=== PATIENT | female | born 1955 | race Hispanic/Latino ===

== ENCOUNTER 2017-09-06 20:34 | Observation (INO) | payer SELFPAY ==
[~2017-09-06] VITALS: Ht 157.5 cm; Wt 79.2 kg
[~2017-09-06 20:34] MED LIST: CYAN100010 PO; FISH1CAP50 PO; HUMLIS7525 SQ; LISI10TA7 PO; OMEP20TA25 PO
[2017-09-06] MEDS ORDERED: ONDANSETRON HCL 4 MG/2 ML VIAL ONE (20:43)
[2017-09-06] MEDS ORDERED: SODIUM CHLORIDE 0.9% 1000ML 1,000 ML IV ONE (20:43)
[2017-09-06 21:00] LABS: BASOPHILS % (AUTO) 0.3 % (0.0-5.0); HEMATOCRIT 35.4 % (36-48); LYMPHOCYTES % (AUTO) 5.9 % (21.0-51.0); MEAN CORPUSCULAR HGB CONC 33.5 g/dL (32.0-36.0); MEAN CORPUSCULAR VOLUME 86.6 fL (79-99); MONOCYTES % (AUTO) 4.5 % (3.0-13.0); NEUTROPHILS % (AUTO) 88.3 % (40.0-77.0); PLATELET COUNT (AUTO) 279 K/uL (130-400); RED BLOOD CELL COUNT(AUTO) 4.09 MIL/uL (4.00-5.50); RED CELL DISTRIBUTION WIDTH 15.3 % (11.0-15.5); WHITE BLOOD COUNT (AUTO) 5.8 K/uL (4.8-10.8)
[2017-09-06 21:02] LABS: CREATININE 1.3 mg/dL (0.5-1.5); POTASSIUM 4.1 mmol/L (3.5-5.1)
[2017-09-06] MEDS ORDERED: IPRATROPIUM/ALBUTEROL SULFATE 3 ML SOLUTION IH ONE ×2 (21:04→21:54)
[2017-09-06] MEDS ORDERED: METHYLPREDNISOLONE SOD SUCC 125MG/2ML VIAL ONE (21:06)
[2017-09-06] MEDS ORDERED: MECLIZINE HCL 25 MG TABLET ONE (21:53)
[2017-09-07] MEDS ORDERED: MECLIZINE HCL 25 MG TABLET PO PRN
[2017-09-07] MEDS ORDERED: HYDRALAZINE HCL 20 MG/ML VIAL IV PRN
[2017-09-07] MEDS ORDERED: ONDANSETRON HCL 4 MG/2 ML VIAL IV PRN
[2017-09-07] MEDS: FUROSEMIDE 10 MG/ML 4ML VIAL IVP SCH
[2017-09-07] MEDS ORDERED: ACETAMINOPHEN 325 MG TAB PO PRN
[2017-09-07] MEDS ORDERED: FUROSEMIDE 10 MG/ML 4ML VIAL ONE (00:35)
[2017-09-07 01:15] VITALS: BP 162/77
[2017-09-07] MEDS ORDERED: PROP10DR5 OS (01:41)
[2017-09-07] MEDS ORDERED: ACET1TAB12 PO (01:41)
[2017-09-07] MEDS ORDERED: BENZ-51 PO (01:41)
[2017-09-07] MEDS ORDERED: INSU100I3 SQ (01:41)
[2017-09-07] MEDS ORDERED: AMOX500C2 PO (01:41)
[2017-09-07] MEDS ORDERED: METF500T6 PO (01:41)
[2017-09-07] MEDS ORDERED: ALBU6.7H IH (01:41)
[2017-09-07] MEDS ORDERED: LISI30TA4 PO (01:41)
[2017-09-07] MEDS ORDERED: ATOR10 PO (01:41)
[2017-09-07] MEDS: IPRATROPIUM/ALBUTEROL SULFATE 3 ML SOLUTION IH SCH ×6 (01:56→22:18)
[2017-09-07 03:31] VITALS: BP 156/80
[2017-09-07 06:28] LABS: CREATININE 1.6 mg/dL (0.5-1.5); HEMATOCRIT 28.9 % (36-48); MAGNESIUM 1.8 mg/dL (1.80-2.40); MEAN CORPUSCULAR HEMOGLOBIN 30.1 pg (27.0-33.0); MEAN CORPUSCULAR HGB CONC 34.6 g/dL (32.0-36.0); MEAN CORPUSCULAR VOLUME 87.2 fL (79-99); PLATELET COUNT (AUTO) 255 K/uL (130-400); POTASSIUM 4.1 mmol/L (3.5-5.1); RED BLOOD CELL COUNT(AUTO) 3.32 MIL/uL (4.00-5.50); RED CELL DISTRIBUTION WIDTH 15.1 % (11.0-15.5); WHITE BLOOD COUNT (AUTO) 5.1 K/uL (4.8-10.8)
[2017-09-07] MEDS ORDERED: GLUCAGON 1MG KIT 1 MG ML IM PRN (07:00)
[2017-09-07] MEDS ORDERED: DEXTROSE 50%-WATER 50 ML DISP.SYRIN IV PRN (07:00)
[2017-09-07 07:06] LABS: B-TYPE NATRIURETIC PEPTIDE 754 pg/mL (0-100)
[2017-09-07] MEDS: INSULIN LISPRO 100 UNIT/ML 3ML SQ SCH ×5 (07:14→22:09)
[2017-09-07 07:39] LABS: LYMPHOCYTES % (MANUAL) 2 % (22-44); MONOCYTES % (MANUAL) 1 % (2-9); SEGMENTED NEUTROPHILS % 97 % (40-70)
[2017-09-07 07:40] LABS: MAN.DIFF COMMENT-IMPRESSION MANUAL DIFFERENTIAL; PLATELET MORPHOLOGY COMMENT ADEQUATE
[2017-09-07 08:00] VITALS: BP 148/71
[2017-09-07] MEDS: METHYLPREDNISOLONE SOD SUCC 125MG/2ML VIAL IV SCH ×2 (09:48→22:07)
[2017-09-07] MEDS: BENZONATATE 100 MG CAPSULE PO SCH ×3 (09:54→22:06)
[2017-09-07] MEDS: PANTOPRAZOLE SODIUM 40 MG TABLET.DR PO SCH (09:54)
[2017-09-07] MEDS: ENOXAPARIN SODIUM 40 MG/0.4 ML SYRINGE SQ SCH (09:59)
[2017-09-07 11:47] VITALS: BP 128/58
[2017-09-07 16:00] VITALS: BP 147/59
[2017-09-07] MEDS ORDERED: INSULIN HUMULIN R 100 UNIT/ML 3ML SQ SCH (16:30)
[2017-09-07 20:00] VITALS: BP 144/75
[2017-09-08] VITALS: BP 136/74
[2017-09-08] MEDS: FUROSEMIDE 10 MG/ML 4ML VIAL IVP SCH
[2017-09-08] MEDS: IPRATROPIUM/ALBUTEROL SULFATE 3 ML SOLUTION IH SCH ×4 (02:14→13:38)
[2017-09-08 04:00] VITALS: BP 153/79
[2017-09-08] MEDS: INSULIN LISPRO 100 UNIT/ML 3ML SQ SCH ×2 (06:46→11:55)
[2017-09-08 07:00] VITALS: BP 157/78
[2017-09-08] MEDS: BENZONATATE 100 MG CAPSULE PO SCH ×2 (09:59→14:33)
[2017-09-08] MEDS: PANTOPRAZOLE SODIUM 40 MG TABLET.DR PO SCH (09:59)
[2017-09-08] MEDS: ENOXAPARIN SODIUM 40 MG/0.4 ML SYRINGE SQ SCH (10:01)
[2017-09-08] MEDS: METHYLPREDNISOLONE SOD SUCC 125MG/2ML VIAL IV SCH (10:01)
[2017-09-08 11:00] VITALS: BP 147/74
== END 2017-09-08 16:45 | disposition home or self-care (01) ==
LOC: EDH 20:34 → EDHIP 20:35 → 3CH 09-07 00:56
PROVIDERS: ADMIT Family Medicine; ATTEND Family Medicine
DX: J20.9 Acute bronchitis, unspecified (principal); J45.901 Unspecified asthma with (acute) exacerbation; R42 Dizziness and giddiness; E11.22 Type 2 diabetes mellitus with diabetic chronic kidney disease; E66.9 Obesity, unspecified; E78.5 Hyperlipidemia, unspecified; I12.9 Hypertensive chronic kidney disease with stage 1 through stage 4 chronic kidney disease, or unspecified chronic kidney disease; N18.3 Chronic kidney disease, stage 3 (moderate)
CPT/HCPCS: 36415 ×2; 80048 ×2; 82948 ×6; 83735; 83880 ×2; 84484; 85025 ×2; 87633; 93005; 94640 ×12; 94664; 96372 ×2; 96374; 96376 ×2; 99285; G0378 ×44; J1650 ×2; J1940; J2405; J2930 ×4; J7030

== ENCOUNTER 2017-10-08 18:52 | Emergency (ER) | payer SELFPAY ==
[~2017-10-08 18:52] MED LIST changes: +ACET1TAB12 PO; +ALBU6.7H IH; +ATOR10 PO; +BENZ-51 PO; -HUMLIS7525 SQ; +INSU100I3 SQ; -LISI10TA7 PO; +LISI30TA4 PO; +METF500T6 PO; +PROP10DR5 OS
[2017-10-08 20:42] LABS: BASOPHILS % (AUTO) 1.1 % (0.0-5.0); EOSINOPHILS % (AUTO) 7.4 % (0.0-8.0); HEMATOCRIT 29.3 % (36-48); LYMPHOCYTES % (AUTO) 21.5 % (21.0-51.0); MEAN CORPUSCULAR HEMOGLOBIN 29.4 pg (27.0-33.0); MEAN CORPUSCULAR VOLUME 86.4 fL (79-99); MONOCYTES % (AUTO) 8.4 % (3.0-13.0); NEUTROPHILS % (AUTO) 61.6 % (40.0-77.0); NUCLEATED RED BLOOD CELLS 0.2 % (0.0-0.19); PLATELET COUNT (AUTO) 214 K/uL (130-400); RED BLOOD CELL COUNT(AUTO) 3.39 MIL/uL (4.00-5.50); RED CELL DISTRIBUTION WIDTH 14.4 % (11.0-15.5); WHITE BLOOD COUNT (AUTO) 3.3 K/uL (4.8-10.8)
[2017-10-08 20:54] LABS: CREATININE 1.8 mg/dL (0.5-1.5); POTASSIUM 3.5 mmol/L (3.5-5.1)
[2017-10-08 21:05] LABS: ALBUMIN 1.6 g/dL (3.5-5.0); BILIRUBIN,TOTAL 0.2 mg/dL (0.2-1.0); CREATINE KINASE MB 3.1 ng/mL (0.5-3.6); TOTAL PROTEIN, SERUM 5.9 g/dL (6.0-8.3)
[2017-10-08] MEDS ORDERED: INSULIN HUMULIN R 100 UNIT/ML 3ML ONE ×2 (21:37→21:38)
[2017-10-08] MEDS ORDERED: IPRATROPIUM/ALBUTEROL SULFATE 3 ML SOLUTION IH ONE (22:14)
== END 2017-10-09 00:12 | disposition home or self-care (01) ==
LOC: EDH 18:52
DX: J45.909 Unspecified asthma, uncomplicated (principal); E11.65 Type 2 diabetes mellitus with hyperglycemia; I10 Essential (primary) hypertension; Z79.4 Long term (current) use of insulin
CPT/HCPCS: 36415; 71045; 80053; 82550; 82553; 82948; 84484; 85025; 93005; 94640; 96374; 99285; J1815 ×2

== ENCOUNTER 2017-12-13 08:46 | Emergency (ER) | payer SELFPAY ==
[2017-12-13] MEDS ORDERED: ACETAMINOPHEN 325 MG TAB ONE (09:26)
[2017-12-13] MEDS ORDERED: ONDANSETRON HCL MDV 20ML 2 MG/ML VIAL ONE (09:26)
[2017-12-13] MEDS ORDERED: SODIUM CHLORIDE 0.9% 1000ML 1,000 ML IV ONE (09:26)
[2017-12-13 09:29] LABS: APPEARANCE,URINE Clear (CLEAR); BILIRUBIN,URINE Negative (NEGATIVE); COLOR,URINE Yellow (YELLOW); GLUCOSE, URINE (UA) 500 mg/dL (NEGATIVE); KETONES,URINE Negative (NEGATIVE); LEUKOCYTE ESTERASE ,URINE Negative (NEGATIVE); NITRATE,URINE Negative (NEGATIVE); OCCULT BLOOD,URINE Small (NEGATIVE); PH,URINE 6.5 (5.0-8.0); PROTEIN,URINE >=1000 (NEGATIVE); UROBILINOGEN,URINE 0.2 mg/dL (0.2-1.0)
[2017-12-13 09:34] LABS: BACTERIA,URINE Rare /HPF (None Seen); RBC,URINE 0-1 /HPF (0-1); SQUAMOUS EPITHELIAL CELL,UR Rare /LPF (0-2); WBC,URINE 0-1 /HPF (0-1)
[2017-12-13 09:49] LABS: BASOPHILS % (AUTO) 0.6 % (0.0-5.0); EOSINOPHILS % (AUTO) 3.4 % (0.0-8.0); HEMATOCRIT 30.9 % (36-48); LYMPHOCYTES % (AUTO) 16.7 % (21.0-51.0); MEAN CORPUSCULAR HEMOGLOBIN 29.7 pg (27.0-33.0); MEAN CORPUSCULAR VOLUME 87.2 fL (79-99); MONOCYTES % (AUTO) 5.8 % (3.0-13.0); NEUTROPHILS % (AUTO) 73.5 % (40.0-77.0); PLATELET COUNT (AUTO) 216 K/uL (130-400); RED BLOOD CELL COUNT(AUTO) 3.54 MIL/uL (4.00-5.50); RED CELL DISTRIBUTION WIDTH 14.7 % (11.0-15.5); WHITE BLOOD COUNT (AUTO) 4.3 K/uL (4.8-10.8)
[2017-12-13 10:00] LABS: CREATININE 1.8 mg/dL (0.5-1.5); POTASSIUM 4.1 mmol/L (3.5-5.1)
[2017-12-13 10:06] LABS: ALBUMIN 1.9 g/dL (3.5-5.0); BILIRUBIN,TOTAL 0.2 mg/dL (0.2-1.0)
== END 2017-12-13 11:49 | disposition home or self-care (01) ==
LOC: EDH 08:46
DX: R11.2 Nausea with vomiting, unspecified (principal); G89.29 Other chronic pain; M54.2 Cervicalgia; E11.9 Type 2 diabetes mellitus without complications; E78.5 Hyperlipidemia, unspecified; I10 Essential (primary) hypertension; J45.909 Unspecified asthma, uncomplicated; Z79.4 Long term (current) use of insulin; Z90.710 Acquired absence of both cervix and uterus
CPT/HCPCS: 36415; 80053; 81001; 83690; 84484; 85025; 93005; 96361; 96374; 99285; J7030

== ENCOUNTER 2018-02-20 09:49 | Inpatient (IN) | payer OTHER ==
[~2018-02-20] VITALS: Ht 152.4 cm; Wt 78.2 kg
[2018-02-20] MEDS ORDERED: IPRATROPIUM/ALBUTEROL SULFATE 3 ML SOLUTION IH ONE (10:09)
[2018-02-20] MEDS ORDERED: METHYLPREDNISOLONE SOD SUCC 40MG/ML 1ML ONE (10:24)
[2018-02-20] MEDS ORDERED: ACETAMINOPHEN 325 MG TAB ONE (10:24)
[2018-02-20 10:25] LABS: BASOPHILS % (AUTO) 0.5 % (0.0-5.0); EOSINOPHILS % (AUTO) 4.4 % (0.0-8.0); HEMATOCRIT 28.5 % (36-48); LYMPHOCYTES % (AUTO) 29.3 % (21.0-51.0); MEAN CORPUSCULAR HEMOGLOBIN 30.1 pg (27.0-33.0); MEAN CORPUSCULAR HGB CONC 34.6 g/dL (32.0-36.0); MEAN CORPUSCULAR VOLUME 86.8 fL (79-99); MONOCYTES % (AUTO) 7.8 % (3.0-13.0); NUCLEATED RED BLOOD CELLS 0.1 % (0.0-0.19); PLATELET COUNT (AUTO) 198 K/uL (130-400); RED BLOOD CELL COUNT(AUTO) 3.28 MIL/uL (4.00-5.50); RED CELL DISTRIBUTION WIDTH 14.6 % (11.0-15.5); WHITE BLOOD COUNT (AUTO) 4.4 K/uL (4.8-10.8)
[2018-02-20] MEDS ORDERED: NITROGLYCERIN 1GM/1 INCH PACKET TD ONE (10:25)
[2018-02-20 10:31] LABS: CREATININE 2.6 mg/dL (0.5-1.5); POTASSIUM 4.6 mmol/L (3.5-5.1)
[2018-02-20 10:43] LABS: ALBUMIN 2.1 g/dL (3.5-5.0); BILIRUBIN,TOTAL 0.2 mg/dL (0.2-1.0); TOTAL PROTEIN, SERUM 6.4 g/dL (6.0-8.3)
[2018-02-20 10:44] LABS: B-TYPE NATRIURETIC PEPTIDE 796 pg/mL (0-100)
[2018-02-20 10:56] LABS: APPEARANCE,URINE Clear (CLEAR); BILIRUBIN,URINE Negative (NEGATIVE); COLOR,URINE Yellow (YELLOW); GLUCOSE, URINE (UA) 500 mg/dL (NEGATIVE); KETONES,URINE Negative (NEGATIVE); LEUKOCYTE ESTERASE ,URINE Negative (NEGATIVE); NITRATE,URINE Negative (NEGATIVE); OCCULT BLOOD,URINE Small (NEGATIVE); PH,URINE 6.5 (5.0-8.0); PROTEIN,URINE >=1000 (NEGATIVE); UROBILINOGEN,URINE 0.2 mg/dL (0.2-1.0)
[2018-02-20 11:20] LABS: BACTERIA,URINE Few /HPF (None Seen); RBC,URINE 0-1 /HPF (0-1)
[2018-02-20] MEDS ORDERED: FUROSEMIDE 10 MG/ML 4ML VIAL ONE (12:55)
[2018-02-20 16:35] VITALS: BP 156/96
[2018-02-20] MEDS ORDERED: ASPI-555 PO (17:17)
[2018-02-20] MEDS ORDERED: PNEUMOCOCCAL VACCINE POLYVALENT 0.5 ML/VIAL [PPV] IM ONE (18:30)
[2018-02-20 19:15] VITALS: BP 178/83
[2018-02-20] MEDS ORDERED: FUROSEMIDE 10 MG/ML 4ML VIAL IVP ONE (20:30)
[2018-02-20 23:42] VITALS: BP 179/67
[2018-02-21] MEDS ORDERED: IPRATROPIUM/ALBUTEROL SULFATE 3 ML SOLUTION IH ONE (00:58)
[2018-02-21] MEDS: IPRATROPIUM/ALBUTEROL SULFATE 3 ML SOLUTION IH SCH ×6 (02:00→21:44)
[2018-02-21 04:28] LABS: HEMATOCRIT 26.4 % (36-48); MEAN CORPUSCULAR HEMOGLOBIN 29.9 pg (27.0-33.0); MEAN CORPUSCULAR HGB CONC 34.2 g/dL (32.0-36.0); MEAN CORPUSCULAR VOLUME 87.4 fL (79-99); PLATELET COUNT (AUTO) 194 K/uL (130-400); RED BLOOD CELL COUNT(AUTO) 3.02 MIL/uL (4.00-5.50); RED CELL DISTRIBUTION WIDTH 14.5 % (11.0-15.5); WHITE BLOOD COUNT (AUTO) 5.1 K/uL (4.8-10.8)
[2018-02-21 04:31] VITALS: BP 155/77
[2018-02-21 04:39] LABS: B-TYPE NATRIURETIC PEPTIDE 1070 pg/mL (0-100)
[2018-02-21 04:42] LABS: MAGNESIUM 1.8 mg/dL (1.80-2.40); PHOSPHORUS 6.1 mg/dL (2.5-4.9); URIC ACID 6.4 mg/dL (2.6-7.2)
[2018-02-21 05:03] LABS: % IRON SATURATION 24.5 % (22-44)
[2018-02-21] MEDS: FUROSEMIDE 10 MG/ML 4ML VIAL IVP SCH ×2 (05:54→16:09)
[2018-02-21 08:00] VITALS: BP 152/72
[2018-02-21] MEDS: INSULIN HUMULIN R 100 UNIT/ML 3ML SQ SCH ×4 (08:02→20:50)
[2018-02-21] MEDS ORDERED: FERR324T4 PO (08:22)
[2018-02-21] MEDS ORDERED: PHEN95TA23 PO (08:22)
[2018-02-21] MEDS ORDERED: LISI40TA4 PO (08:22)
[2018-02-21] MEDS ORDERED: FURO20TA4 PO ×2 (08:22)
[2018-02-21] MEDS ORDERED: HYDR-3421 PO (08:22)
[2018-02-21] MEDS ORDERED: BECL8.7A7 IH (08:22)
[2018-02-21] MEDS ORDERED: INSU100V12 SQ (08:23)
[2018-02-21] MEDS: FOLIC ACID/VITAMIN B COMP W-C 1 MG CAPSULE PO SCH (09:04)
[2018-02-21 12:00] VITALS: BP 134/51
[2018-02-21 16:00] VITALS: BP 151/70
[2018-02-21] MEDS: CALCIUM ACETATE 667 MG CAPSULE PO SCH (16:09)
[2018-02-21 18:14] LABS: CREATINE KINASE MB 4.4 ng/mL (0.5-3.6); CREATINE KINASE, TOTAL 189 U/L (21-232); MYOGLOBIN 364 ng/mL (10-92); TROPONIN I < 0.04 ng/mL (0.00-0.06)
[2018-02-21 18:44] LABS: COLLECTION PERIOD,URINE 24 HR; TOTAL VOLUME 24HRS,URINE 1900 mL
[2018-02-21 19:54] VITALS: BP 115/54
[2018-02-21 19:59] LABS: TPROTEIN TIMED,URINE 228 mg/dL; TPROTEIN U,24HR CALC 4332 mg/24HR (0-165)
[2018-02-21] MEDS: ATORVASTATIN CALCIUM 20 MG TABLET PO SCH (20:27)
[2018-02-21] MEDS: METOPROLOL TARTRATE 25 MG TAB PO SCH (20:27)
[2018-02-21 23:22] VITALS: BP 161/77
[2018-02-22] MEDS: IPRATROPIUM/ALBUTEROL SULFATE 3 ML SOLUTION IH SCH ×2 (01:39→05:56)
[2018-02-22 04:02] VITALS: BP 146/66
[2018-02-22 04:22] LABS: BASOPHILS % (AUTO) 0.4 % (0.0-5.0); EOSINOPHILS % (AUTO) 1.6 % (0.0-8.0); HEMATOCRIT 24.4 % (36-48); LYMPHOCYTES % (AUTO) 28.2 % (21.0-51.0); MEAN CORPUSCULAR HEMOGLOBIN 30.8 pg (27.0-33.0); MEAN CORPUSCULAR HGB CONC 35.4 g/dL (32.0-36.0); MONOCYTES % (AUTO) 6.4 % (3.0-13.0); NEUTROPHILS % (AUTO) 63.4 % (40.0-77.0); PLATELET COUNT (AUTO) 202 K/uL (130-400); RED CELL DISTRIBUTION WIDTH 14.9 % (11.0-15.5); WHITE BLOOD COUNT (AUTO) 4.9 K/uL (4.8-10.8)
[2018-02-22 04:34] LABS: CREATININE 2.9 mg/dL (0.5-1.5); POTASSIUM 3.7 mmol/L (3.5-5.1)
[2018-02-22] MEDS: INSULIN HUMULIN R 100 UNIT/ML 3ML SQ SCH ×4 (05:52→20:48)
[2018-02-22] MEDS: FUROSEMIDE 10 MG/ML 4ML VIAL IVP SCH ×2 (06:13→17:10)
[2018-02-22 07:30] VITALS: BP 176/80
[2018-02-22] MEDS: FOLIC ACID/VITAMIN B COMP W-C 1 MG CAPSULE PO SCH (09:06)
[2018-02-22] MEDS: ASPIRIN 81MG TAB.CHEW PO SCH (09:06)
[2018-02-22] MEDS: CALCIUM ACETATE 667 MG CAPSULE PO SCH ×3 (09:06→17:10)
[2018-02-22] MEDS: METOPROLOL TARTRATE 25 MG TAB PO SCH ×2 (09:06→20:20)
[2018-02-22 11:00] VITALS: BP 155/72
[2018-02-22] MEDS: AMLODIPINE BESYLATE 5 MG TAB PO SCH (11:35)
[2018-02-22] MEDS: HYDRALAZINE HCL 25 MG TABLET PO SCH ×3 (11:35→20:24)
[2018-02-22 16:00] VITALS: BP 168/76
[2018-02-22 19:00] VITALS: BP 145/78
[2018-02-22] MEDS: ATORVASTATIN CALCIUM 20 MG TABLET PO SCH (20:20)
[2018-02-23] VITALS: BP 128/55
[2018-02-23 04:00] VITALS: BP 138/61
[2018-02-23 04:45] LABS: BASOPHILS % (AUTO) 0.5 % (0.0-5.0); HEMATOCRIT 28.3 % (36-48); LYMPHOCYTES % (AUTO) 32.1 % (21.0-51.0); MEAN CORPUSCULAR HEMOGLOBIN 29.8 pg (27.0-33.0); MEAN CORPUSCULAR HGB CONC 34.4 g/dL (32.0-36.0); MEAN CORPUSCULAR VOLUME 86.6 fL (79-99); MONOCYTES % (AUTO) 7.4 % (3.0-13.0); PLATELET COUNT (AUTO) 244 K/uL (130-400); RED BLOOD CELL COUNT(AUTO) 3.26 MIL/uL (4.00-5.50); RED CELL DISTRIBUTION WIDTH 14.6 % (11.0-15.5); WHITE BLOOD COUNT (AUTO) 4.7 K/uL (4.8-10.8)
[2018-02-23 04:56] LABS: CREATININE 2.8 mg/dL (0.5-1.5)
[2018-02-23] MEDS: FUROSEMIDE 10 MG/ML 4ML VIAL IVP SCH ×2 (05:44→17:15)
[2018-02-23] MEDS: INSULIN HUMULIN R 100 UNIT/ML 3ML SQ SCH ×4 (06:21→21:28)
[2018-02-23 08:07] VITALS: BP 161/77
[2018-02-23] MEDS: CALCIUM ACETATE 667 MG CAPSULE PO SCH ×3 (08:57→17:15)
[2018-02-23] MEDS: ASPIRIN 81MG TAB.CHEW PO SCH (08:57)
[2018-02-23] MEDS: AMLODIPINE BESYLATE 5 MG TAB PO SCH (08:57)
[2018-02-23] MEDS: HYDRALAZINE HCL 25 MG TABLET PO SCH ×3 (08:57→20:10)
[2018-02-23] MEDS: FOLIC ACID/VITAMIN B COMP W-C 1 MG CAPSULE PO SCH (08:57)
[2018-02-23] MEDS: METOPROLOL TARTRATE 25 MG TAB PO SCH ×2 (08:58→20:09)
[2018-02-23 12:03] VITALS: BP 132/63
[2018-02-23 16:35] VITALS: BP 127/61
[2018-02-23 19:00] VITALS: BP 161/77
[2018-02-23] MEDS: ATORVASTATIN CALCIUM 20 MG TABLET PO SCH (20:09)
[2018-02-24] VITALS: BP 136/71
[2018-02-24] MEDS ORDERED: DEXTROSE 50%-WATER 50 ML DISP.SYRIN IV ONE (01:08)
[2018-02-24 04:00] VITALS: BP 146/51
[2018-02-24] MEDS: FUROSEMIDE 10 MG/ML 4ML VIAL IVP SCH (05:52)
[2018-02-24] MEDS: INSULIN HUMULIN R 100 UNIT/ML 3ML SQ SCH ×2 (06:09→12:04)
[2018-02-24 07:42] VITALS: BP 149/72
[2018-02-24] MEDS: METOPROLOL TARTRATE 25 MG TAB PO SCH (07:52)
[2018-02-24] MEDS: AMLODIPINE BESYLATE 5 MG TAB PO SCH (07:52)
[2018-02-24] MEDS: CALCIUM ACETATE 667 MG CAPSULE PO SCH ×3 (07:52→16:57)
[2018-02-24] MEDS: ASPIRIN 81MG TAB.CHEW PO SCH (07:52)
[2018-02-24] MEDS: FOLIC ACID/VITAMIN B COMP W-C 1 MG CAPSULE PO SCH (07:52)
[2018-02-24] MEDS: HYDRALAZINE HCL 25 MG TABLET PO SCH ×2 (09:00→14:54)
[2018-02-24] MEDS ORDERED: HYDR25 PO (10:44)
[2018-02-24] MEDS ORDERED: Folic Acid/Vitamin B Comp W-C PO (10:44)
[2018-02-24] MEDS ORDERED: METO25 PO (10:44)
[2018-02-24] MEDS ORDERED: ASPI-1005 PO (10:44)
[2018-02-24] MEDS ORDERED: AMLO5TAB4 PO (10:44)
[2018-02-24] MEDS ORDERED: Calcium Acetate PO (10:44)
[2018-02-24 11:47] VITALS: BP 156/56
== END 2018-02-24 17:28 | disposition home or self-care (01) | DRG 291 ==
LOC: EDH 09:49 → EDHIP 09:50 → 3AH 15:47
PROVIDERS: ADMIT Internal Medicine Nephrology; ATTEND Internal Medicine Nephrology
DX: I13.0 Hypertensive heart and chronic kidney disease with heart failure and stage 1 through stage 4 chronic kidney disease, or unspecified chronic kidney disease (principal); I50.33 Acute on chronic diastolic (congestive) heart failure; E11.21 Type 2 diabetes mellitus with diabetic nephropathy; E11.51 Type 2 diabetes mellitus with diabetic peripheral angiopathy without gangrene; N04.9 Nephrotic syndrome with unspecified morphologic changes; N18.4 Chronic kidney disease, stage 4 (severe); W18.39XA Other fall on same level, initial encounter; D63.1 Anemia in chronic kidney disease; E11.22 Type 2 diabetes mellitus with diabetic chronic kidney disease; E11.65 Type 2 diabetes mellitus with hyperglycemia; E66.01 Morbid (severe) obesity due to excess calories; E78.5 Hyperlipidemia, unspecified; K21.9 Gastro-esophageal reflux disease without esophagitis; J44.9 Chronic obstructive pulmonary disease, unspecified; Z68.33 Body mass index [BMI] 33.0-33.9, adult; Z88.8 Allergy status to other drugs, medicaments and biological substances; Z90.710 Acquired absence of both cervix and uterus; Z79.4 Long term (current) use of insulin; Z79.899 Other long term (current) drug therapy; Y93.89 Activity, other specified; Y92.89 Other specified places as the place of occurrence of the external cause; Y99.8 Other external cause status; Z82.49 Family history of ischemic heart disease and other diseases of the circulatory system; Z83.3 Family history of diabetes mellitus
CPT/HCPCS: 36415; 71046; 73030; 76770; 80048; 80053; 81001; 82550; 82553; 82575; 82728; 82948; 83540; 83550; 83735; 83874; 83880; 84100; 84156; 84484; 84550; 85025; 85027; 93005; 93306; 94640; 94664; J1815; J1940; J2920; J7070

== ENCOUNTER 2018-10-03 09:00 | Emergency (ER) | payer OTHER ==
[~2018-10-03 09:00] MED LIST changes: -ACET1TAB12 PO; -ALBU6.7H IH; +AMLO5TAB4 PO; +ASPI-1005 PO; -ATOR10 PO; +BECL8.7A7 IH; -BENZ-51 PO; -CYAN100010 PO; +Calcium Acetate PO; +FERR324T4 PO; -FISH1CAP50 PO; +FURO20TA4 PO; +Folic Acid/Vitamin B Comp W-C PO; +HYDR-3421 PO; +HYDR25 PO; -INSU100I3 SQ; +INSU100V12 SQ; -LISI30TA4 PO; -METF500T6 PO; +METO25 PO; -OMEP20TA25 PO; -PROP10DR5 OS
[2018-10-03 09:28] LABS: BASOPHILS % (AUTO) 0.6 % (0.0-5.0); EOSINOPHILS % (AUTO) 4.3 % (0.0-8.0); HEMATOCRIT 27.9 % (36-48); LYMPHOCYTES % (AUTO) 14.3 % (21.0-51.0); MEAN CORPUSCULAR HEMOGLOBIN 30.4 pg (27.0-33.0); MEAN CORPUSCULAR HGB CONC 33.9 g/dL (32.0-36.0); MEAN CORPUSCULAR VOLUME 89.6 fL (79-99); MONOCYTES % (AUTO) 5.1 % (3.0-13.0); NEUTROPHILS % (AUTO) 75.7 % (40.0-77.0); PLATELET COUNT (AUTO) 292 K/uL (130-400); RED BLOOD CELL COUNT(AUTO) 3.11 MIL/uL (4.00-5.50); RED CELL DISTRIBUTION WIDTH 15.3 % (11.0-15.5)
[2018-10-03 09:36] LABS: CREATININE 3.4 mg/dL (0.5-1.5); POTASSIUM 4.6 mmol/L (3.5-5.1)
[2018-10-03 09:41] LABS: ALBUMIN 2.2 g/dL (3.5-5.0); BILIRUBIN,TOTAL 0.2 mg/dL (0.2-1.0); TOTAL PROTEIN, SERUM 6.4 g/dL (6.0-8.3)
[2018-10-03 09:45] LABS: INR 0.92 (0.85-1.15); PARTIAL THROMBOPLASTIN TIME 28.9 SEC (26.3-35.5); PROTHROMBIN TIME 9.7 SEC (9.6-11.6)
[2018-10-03 09:55] LABS: B-TYPE NATRIURETIC PEPTIDE 665 pg/mL (0-100)
[2018-10-03 11:13] LABS: APPEARANCE,URINE Clear (CLEAR); BILIRUBIN,URINE Negative (NEGATIVE); COLOR,URINE Yellow (YELLOW); GLUCOSE, URINE (UA) 500 mg/dL (NEGATIVE); KETONES,URINE Negative (NEGATIVE); LEUKOCYTE ESTERASE ,URINE Negative (NEGATIVE); NITRATE,URINE Negative (NEGATIVE); OCCULT BLOOD,URINE Trace (NEGATIVE); PROTEIN,URINE >=1000 (NEGATIVE); UROBILINOGEN,URINE 0.2 mg/dL (0.2-1.0)
[2018-10-03 11:23] LABS: BACTERIA,URINE None Seen /HPF (None Seen); RBC,URINE 0-1 /HPF (0-1); SQUAMOUS EPITHELIAL CELL,UR None Seen /HPF (0-2); WBC,URINE None Seen /HPF (0-1)
[2018-10-03] MEDS ORDERED: IPRATROPIUM/ALBUTEROL SULFATE 3 ML SOLUTION IH ONE (11:27)
== END 2018-10-03 11:48 | disposition home or self-care (01) ==
LOC: EDH 09:00
DX: R06.00 Dyspnea, unspecified (principal); R05 Cough; E11.22 Type 2 diabetes mellitus with diabetic chronic kidney disease; I12.9 Hypertensive chronic kidney disease with stage 1 through stage 4 chronic kidney disease, or unspecified chronic kidney disease; N18.3 Chronic kidney disease, stage 3 (moderate); E78.5 Hyperlipidemia, unspecified; Z79.4 Long term (current) use of insulin; Z88.8 Allergy status to other drugs, medicaments and biological substances
CPT/HCPCS: 36415; 71045; 80053; 81001; 82550; 83880; 84484; 85025; 85610; 85730; 87804; 93005; 94640

== ENCOUNTER 2018-10-24 12:15 | Inpatient (IN) | payer SELFPAY ==
[~2018-10-24] VITALS: Ht 154.9 cm; Wt 64.6 kg
[2018-10-24] MEDS ORDERED: SODIUM CHLORIDE 0.9% 1000ML 1,000 ML IV ONE ×2 (12:36→18:18)
[2018-10-24] MEDS ORDERED: ONDANSETRON HCL 4 MG/2 ML VIAL ONE (12:36)
[2018-10-24] MEDS ORDERED: MORPHINE SULFATE 4 MG/1ML SYG ONE (12:37)
[2018-10-24 12:52] LABS: BASOPHILS % (AUTO) 0.5 % (0.0-5.0); EOSINOPHILS % (AUTO) 4.6 % (0.0-8.0); HEMATOCRIT 25.8 % (36-48); LYMPHOCYTES % (AUTO) 9.4 % (21.0-51.0); MEAN CORPUSCULAR HEMOGLOBIN 31.2 pg (27.0-33.0); MEAN CORPUSCULAR HGB CONC 34.7 g/dL (32.0-36.0); MONOCYTES % (AUTO) 5.6 % (3.0-13.0); NEUTROPHILS % (AUTO) 79.9 % (40.0-77.0); PLATELET COUNT (AUTO) 211 K/uL (130-400); RED BLOOD CELL COUNT(AUTO) 2.87 MIL/uL (4.00-5.50); RED CELL DISTRIBUTION WIDTH 15.4 % (11.0-15.5); WHITE BLOOD COUNT (AUTO) 4.8 K/uL (4.8-10.8)
[2018-10-24 13:03] LABS: CREATININE 4.1 mg/dL (0.5-1.5); POTASSIUM 4.3 mmol/L (3.5-5.1)
[2018-10-24 13:08] LABS: BILIRUBIN,TOTAL 0.3 mg/dL (0.2-1.0); TOTAL PROTEIN, SERUM 6.3 g/dL (6.0-8.3)
[2018-10-24 14:16] LABS: APPEARANCE,URINE CLEAR (CLEAR); BILIRUBIN,URINE NEGATIVE (NEGATIVE); COLOR,URINE YELLOW (YELLOW); GLUCOSE, URINE (UA) 250 mg/dL (NEGATIVE); KETONES,URINE 5 mg/dL (NEGATIVE); LEUKOCYTE ESTERASE ,URINE NEGATIVE (NEGATIVE); NITRATE,URINE NEGATIVE (NEGATIVE); OCCULT BLOOD,URINE MODERATE (NEGATIVE); PH,URINE 6.5 (5.0-8.0); PROTEIN,URINE >=300 (NEGATIVE); UROBILINOGEN,URINE 0.2 mg/dL (0.2-1.0)
[2018-10-24 14:17] LABS: BACTERIA,URINE Few /HPF (None Seen); HYALINE CASTS, URINE 0-1 /LPF (0-1 /LPF); MUCUS,URINE Few LPF (None Seen); RBC,URINE 0-1 /HPF (0-1); SQUAMOUS EPITHELIAL CELL,UR Moderate /HPF (0-2)
[2018-10-24] MEDS: SODIUM CHLORIDE 0.9% 1000ML 1,000 ML IV SCH (15:32)
[2018-10-24] MEDS ORDERED: PROMETHAZINE HCL 25 MG/ML 1ML AMPULE IM ONE (15:33)
[2018-10-24] MEDS ORDERED: CEFTRIAXONE SODIUM 1 GM ONE (15:34)
[2018-10-24] MEDS ORDERED: ACETAMINOPHEN 325 MG TAB ONE (15:34)
[2018-10-24] MEDS: CEFTRIAXONE SODIUM 1 GM IV SCH (15:45)
[2018-10-24] MEDS ORDERED: HYDRALAZINE HCL 20 MG/ML VIAL IV PRN (15:45)
[2018-10-24] MEDS ORDERED: LACTULOSE 20 GM/30 ML UDCUP PO PRN (15:45)
[2018-10-24] MEDS ORDERED: ACETAMINOPHEN 325 MG TAB PO PRN (15:45)
[2018-10-24] MEDS ORDERED: ONDANSETRON HCL 4 MG/2 ML VIAL IV PRN (15:45)
[2018-10-24] MEDS: INSULIN HUMULIN R 100 UNIT/ML 3ML SQ SCH ×2 (16:30→21:00)
[2018-10-24] MEDS: IPRATROPIUM/ALBUTEROL SULFATE 3 ML SOLUTION IH SCH (17:56)
[2018-10-24 19:06] LABS: % IRON SATURATION 24.6 % (22-44)
[2018-10-24 19:07] LABS: MAGNESIUM 2.1 mg/dL (1.80-2.40); PHOSPHORUS 5.9 mg/dL (2.5-4.9)
[2018-10-24 21:38] LABS: HEMOGLOBIN A1C 5.5 % (4.0-6.0)
[2018-10-24 22:03] VITALS: BP 181/84
[2018-10-24] MEDS ORDERED: DILT240C11 PO (22:18)
[2018-10-24] MEDS ORDERED: GUAI-1211 PO (22:20)
[2018-10-24] MEDS ORDERED: CETI10TA57 PO (22:20)
[2018-10-24] MEDS ORDERED: ALBU6.7H IH (22:22)
[2018-10-24 23:45] VITALS: BP 158/85
[2018-10-25] MEDS: IPRATROPIUM/ALBUTEROL SULFATE 3 ML SOLUTION IH SCH ×4 (00:32→19:45)
[2018-10-25 04:00] VITALS: BP 152/79
[2018-10-25 04:32] LABS: HEMATOCRIT 21.4 % (36-48); MEAN CORPUSCULAR HEMOGLOBIN 30.6 pg (27.0-33.0); MEAN CORPUSCULAR HGB CONC 34.2 g/dL (32.0-36.0); MEAN CORPUSCULAR VOLUME 89.7 fL (79-99); PLATELET COUNT (AUTO) 175 K/uL (130-400); RED BLOOD CELL COUNT(AUTO) 2.38 MIL/uL (4.00-5.50); RED CELL DISTRIBUTION WIDTH 15.8 % (11.0-15.5); WHITE BLOOD COUNT (AUTO) 3.1 K/uL (4.8-10.8)
[2018-10-25 04:50] LABS: CREATININE 3.8 mg/dL (0.5-1.5); MAGNESIUM 1.9 mg/dL (1.80-2.40); PHOSPHORUS 5.3 mg/dL (2.5-4.9); POTASSIUM 4.8 mmol/L (3.5-5.1); URIC ACID 5.9 mg/dL (2.6-7.2)
[2018-10-25] MEDS: INSULIN HUMULIN R 100 UNIT/ML 3ML SQ SCH ×4 (07:30→21:00)
[2018-10-25 07:42] VITALS: BP 149/81
[2018-10-25] MEDS: FOLIC ACID/VITAMIN B COMP W-C 1 MG CAPSULE PO SCH (10:09)
[2018-10-25] MEDS: PANTOPRAZOLE SODIUM 40 MG TABLET.DR PO SCH (10:09)
[2018-10-25 11:38] VITALS: BP 153/84
--- NOTE | 2018-10-25 12:51 | NUR ---
DCP CM met with pt and daughter discussed dc plans. Pt is independent prior to admission, lives at home w/spouse. Denies any equipments/services. Pt feels safe to go back home, spouse and daughter able to assist with transportation and needs as necessary. DC plan to home once stable. CM to cont to follow up. Addendum: 10/25/18 at 1254 by KWAKU CERVANTES LVN CM Amended: Links added.
--- NOTE | 2018-10-25 15:05 | NUR ---
CM Note: [facility] full capacity, no chair available CM met with pt and family discussed Dr Crisostomo recs for op dialysis w/[facility] or [facility], pt and daughter agreeable, patient signed CYNDY. Faxed clinicals and order. CM to cont to follow up. Spoke to Ashlee w/[facility], stated they are in full capacity as of today, no chair available, has told Dr Crisostomo this morning. Dr Gaytan currently rounding, made aware full capacity at [facility], as per Dr Crisostomo try [facility]. Faxed clinicals to [facility]. CM to cont to follow up.
--- NOTE | 2018-10-25 15:21 | NUR ---
CM Note: [facility] Spoke to Cathryn fan/[facility], will check on pt's status if able to qualify outpatient dialysis. Aware pt still pending labs and Dr Crisostomo would like to know first if she'll qualify prior to starting 1st dialysis in hospital. Per Cathryn will call back. Pt pending approval, acceptance, and chair time. Primary nurse and Dr Crisostomo made aware. CM to cont to follow up.
[2018-10-25] MEDS: SODIUM CHLORIDE 0.9% 1000ML 1,000 ML IV SCH (16:02)
[2018-10-25] MEDS: CEFTRIAXONE SODIUM 1 GM IV SCH (16:02)
[2018-10-25 16:27] VITALS: BP 145/84
--- NOTE | 2018-10-25 17:46 | NUR ---
Nutrition Intervention: Nutrition consult based on malnutrition trigger. Pt. admitted with Dx of Intractable N/V, CKD Stg 5, UTI. Pt. on Renal Non Dialysis diet with good p.o. intake, per pt.; reports no problems with N/V. Labs reviewed(Alb 2.0, BUN 39, Creat 3.8, GFR 13, BG 83, HgbA1c 5.5%). Pt. with severe visceral protein depletion. Protein supplementation contraindicated at this time due to CKD Stg 5. LBM: 10/24/18, per pt. SR-20, elastic. BMI: 30.2, overweight for age. Pt. educated on Renal Non dialysis diet and provided with education material. Pt. verbalized understanding. Recommendations: 1) Continue current diet. 2) Renal Non dialysis diet education given to patient. 3) Continue to monitor pt's nutritional status. 4) RD to follow-up in 5-7 days. Addendum: 10/25/18 at [address] Amended: Links added.
[2018-10-25] MEDS: EPOETIN ALFA 10,000 UNIT/ML VIAL SQ SCH (18:50)
[2018-10-25 20:00] VITALS: BP 175/82
[2018-10-26] VITALS (8 sets, daily range): BP systolic 149–184; BP diastolic 70–97
[2018-10-26] MEDS: IPRATROPIUM/ALBUTEROL SULFATE 3 ML SOLUTION IH SCH ×4 (00:56→19:07)
[2018-10-26 04:43] LABS: HEMATOCRIT 21.6 % (36-48); MEAN CORPUSCULAR HEMOGLOBIN 30.6 pg (27.0-33.0); MEAN CORPUSCULAR VOLUME 90.1 fL (79-99); PLATELET COUNT (AUTO) 189 K/uL (130-400); RED CELL DISTRIBUTION WIDTH 15.6 % (11.0-15.5)
[2018-10-26 04:58] LABS: ALBUMIN 1.5 g/dL (3.5-5.0); BILIRUBIN,TOTAL 0.1 mg/dL (0.2-1.0); CREATININE 3.8 mg/dL (0.5-1.5); MAGNESIUM 1.9 mg/dL (1.80-2.40); PHOSPHORUS 4.8 mg/dL (2.5-4.9); POTASSIUM 4.4 mmol/L (3.5-5.1); TOTAL PROTEIN, SERUM 5.1 g/dL (6.0-8.3)
[2018-10-26 05:15] LABS: BAND NEUTROPHILS % (MANUAL) 8 % (0-2); EOSINOPHILS % (MANUAL) 7 % (1-6); LYMPHOCYTES % (MANUAL) 17 % (22-44); MONOCYTES % (MANUAL) 6 % (2-9); REACTIVE LYMPHOCYTES 2 % (0-0); SEGMENTED NEUTROPHILS % 60 % (40-70)
[2018-10-26 05:16] LABS: MAN.DIFF COMMENT-IMPRESSION MANUAL DIFFERENTIAL; PLATELET MORPHOLOGY COMMENT ADEQUATE
[2018-10-26 05:40] LABS: INR 0.97 (0.85-1.15); PARTIAL THROMBOPLASTIN TIME 29.6 SEC (26.3-35.5); PROTHROMBIN TIME 10.2 SEC (9.6-11.6)
[2018-10-26 05:56] LABS: % IRON SATURATION 20.8 % (22-44)
[2018-10-26] MEDS: INSULIN HUMULIN R 100 UNIT/ML 3ML SQ SCH ×4 (07:30→20:31)
[2018-10-26] MEDS: SODIUM CHLORIDE 0.9% 1000ML 1,000 ML IV SCH (09:30)
[2018-10-26] MEDS: PANTOPRAZOLE SODIUM 40 MG TABLET.DR PO SCH (09:31)
[2018-10-26] MEDS: FOLIC ACID/VITAMIN B COMP W-C 1 MG CAPSULE PO SCH (09:31)
[2018-10-26] MEDS ORDERED: GUAIFENESIN-CODEINE 5 ML SYRUP PO PRN (12:15)
[2018-10-26] MEDS: CEFTRIAXONE SODIUM 1 GM IV SCH (16:47)
[2018-10-26] MEDS: CALCIUM ACETATE 667 MG CAPSULE PO SCH (16:47)
[2018-10-26] MEDS: FUROSEMIDE 20 MG TABLET PO SCH (16:47)
[2018-10-26] MEDS: CETIRIZINE HCL 5 MG TABLET PO SCH (20:33)
[2018-10-26] MEDS: DILTIAZEM HCL 120 MG CAP.SR.24H PO SCH (20:33)
[2018-10-26] MEDS: INSULIN GLARGINE 100 UNITS/ML 10 ML VIAL SQ SCH (20:37)
[2018-10-26] MEDS: ACETAMINOPHEN 325 MG TAB PO PRN (20:37)
[2018-10-27] MEDS: IPRATROPIUM/ALBUTEROL SULFATE 3 ML SOLUTION IH SCH ×5 (01:06→23:18)
[2018-10-27 04:08] VITALS: BP 121/54
[2018-10-27] MEDS: INSULIN HUMULIN R 100 UNIT/ML 3ML SQ SCH ×4 (06:50→20:46)
[2018-10-27 07:44] VITALS: BP 144/72
[2018-10-27] MEDS: FOLIC ACID/VITAMIN B COMP W-C 1 MG CAPSULE PO SCH (08:55)
[2018-10-27] MEDS: FUROSEMIDE 20 MG TABLET PO SCH ×2 (08:55→16:36)
[2018-10-27] MEDS: CALCIUM ACETATE 667 MG CAPSULE PO SCH ×3 (08:55→16:36)
[2018-10-27] MEDS: PANTOPRAZOLE SODIUM 40 MG TABLET.DR PO SCH (08:55)
[2018-10-27] MEDS: FERROUS SULFATE 325 MG TABLET.DR PO SCH (08:56)
[2018-10-27] MEDS: VITAMIN B COMPLEX 1 CAPSULE PO SCH (08:57)
[2018-10-27 11:32] VITALS: BP 146/78
[2018-10-27] MEDS: CEFTRIAXONE SODIUM 1 GM IV SCH (16:36)
[2018-10-27 16:52] VITALS: BP 146/72
[2018-10-27 19:54] VITALS: BP 178/79
[2018-10-27] MEDS: INSULIN GLARGINE 100 UNITS/ML 10 ML VIAL SQ SCH (20:46)
[2018-10-27] MEDS: CETIRIZINE HCL 5 MG TABLET PO SCH (20:47)
[2018-10-27] MEDS: DILTIAZEM HCL 120 MG CAP.SR.24H PO SCH (20:47)
[2018-10-28] VITALS (14 sets, daily range): BP systolic 140–184; BP diastolic 65–84
[2018-10-28 05:42] LABS: INR 0.96 (0.85-1.15); PARTIAL THROMBOPLASTIN TIME 29.7 SEC (26.3-35.5); PROTHROMBIN TIME 10.1 SEC (9.6-11.6)
[2018-10-28 05:53] LABS: PHOSPHORUS 5.2 mg/dL (2.5-4.9); POTASSIUM 3.8 mmol/L (3.5-5.1)
[2018-10-28 06:04] LABS: HEMATOCRIT 22.5 % (36-48); MEAN CORPUSCULAR HGB CONC 33.5 g/dL (32.0-36.0); MEAN CORPUSCULAR VOLUME 89.4 fL (79-99); NUCLEATED RED BLOOD CELLS 0.4 % (0.0-0.19); PLATELET COUNT (AUTO) 210 K/uL (130-400); RED BLOOD CELL COUNT(AUTO) 2.52 MIL/uL (4.00-5.50); RED CELL DISTRIBUTION WIDTH 15.8 % (11.0-15.5); WHITE BLOOD COUNT (AUTO) 3.6 K/uL (4.8-10.8)
[2018-10-28] MEDS: IPRATROPIUM/ALBUTEROL SULFATE 3 ML SOLUTION IH SCH ×4 (06:04→23:38)
[2018-10-28] MEDS: INSULIN HUMULIN R 100 UNIT/ML 3ML SQ SCH ×4 (07:30→21:00)
[2018-10-28] MEDS: CALCIUM ACETATE 667 MG CAPSULE PO SCH ×3 (08:00→17:00)
[2018-10-28 08:26] LABS: EOSINOPHILS % (MANUAL) 7 % (1-6); LYMPHOCYTES % (MANUAL) 30 % (22-44); MAN.DIFF COMMENT-IMPRESSION MANUAL DIFFERENTIAL; MONOCYTES % (MANUAL) 12 % (2-9); PLATELET MORPHOLOGY COMMENT ADEQUATE; SEGMENTED NEUTROPHILS % 51 % (40-70)
[2018-10-28] MEDS: VITAMIN B COMPLEX 1 CAPSULE PO SCH (10:21)
[2018-10-28] MEDS: FUROSEMIDE 20 MG TABLET PO SCH ×2 (10:21→17:00)
[2018-10-28] MEDS: FERROUS SULFATE 325 MG TABLET.DR PO SCH (10:21)
[2018-10-28] MEDS: FOLIC ACID/VITAMIN B COMP W-C 1 MG CAPSULE PO SCH (10:21)
[2018-10-28] MEDS: PANTOPRAZOLE SODIUM 40 MG TABLET.DR PO SCH (10:21)
--- NOTE | 2018-10-28 12:20 | NUR ---
CM Note: [facility] Spoke to Tony w/[facility] regarding updated on pt's outpatient dialysis. As per Tony will talk to their intake SW and will call back. Pending call back. Primary nurse aware. CM to cont to follow up.
--- NOTE | 2018-10-28 12:32 | NUR ---
CM note: [facility] forward application Spoke to Tony fan/[facility], stated pt lives in [place] application was forward to [facility]. Informed Tony that initially did not have chair for that reason clinicals were sent to [facility] as per Dr Crisostomo's request. As per Tony if today does not have a chair they will send back clinicals to [facility] and will go from there. Spoke to Anali fan/[facility] clarified currently still doesn't have a chair and in full capacity at this time As per Anali will call Tony back from [facility] to inform and will call CM back. CM to cont to follow up.
--- NOTE | 2018-10-28 12:52 | NUR ---
CM Note: [facility] Spoke to Magan w/[facility], stated director verified no bed available at [facility], requested to have clinicals refaxed as [facility] is off today. Refaxed clinicals at this time, aware Dr Crisostomo does not want to start dialysis in hospital until able to confirm pt will have chair [facility] Primary nurse aware. CM to cont to follow up.
[2018-10-28] MEDS ORDERED: LIDOCAINE HCL 1% MDV 50ML VIAL ONE (14:14)
[2018-10-28] MEDS ORDERED: OCTYL 2-CYANOACRYLATE 1 EACH TP ONE (14:46)
[2018-10-28] MEDS: CEFTRIAXONE SODIUM 1 GM IV SCH (15:54)
[2018-10-28] MEDS: CETIRIZINE HCL 5 MG TABLET PO SCH (20:48)
[2018-10-28] MEDS: DILTIAZEM HCL 120 MG CAP.SR.24H PO SCH (20:48)
[2018-10-28] MEDS: INSULIN GLARGINE 100 UNITS/ML 10 ML VIAL SQ SCH (21:00)
[2018-10-29 03:50] VITALS: BP 158/78
[2018-10-29 05:04] LABS: MEAN CORPUSCULAR HEMOGLOBIN 30.5 pg (27.0-33.0); MEAN CORPUSCULAR HGB CONC 33.9 g/dL (32.0-36.0); MEAN CORPUSCULAR VOLUME 89.9 fL (79-99); NUCLEATED RED BLOOD CELLS 0.1 % (0.0-0.19); PLATELET COUNT (AUTO) 222 K/uL (130-400); RED BLOOD CELL COUNT(AUTO) 2.56 MIL/uL (4.00-5.50); RED CELL DISTRIBUTION WIDTH 15.9 % (11.0-15.5); WHITE BLOOD COUNT (AUTO) 3.9 K/uL (4.8-10.8)
[2018-10-29 05:19] LABS: INR 0.96 (0.85-1.15); PARTIAL THROMBOPLASTIN TIME 28.1 SEC (26.3-35.5); POTASSIUM 3.9 mmol/L (3.5-5.1); PROTHROMBIN TIME 10.1 SEC (9.6-11.6)
[2018-10-29] MEDS: IPRATROPIUM/ALBUTEROL SULFATE 3 ML SOLUTION IH SCH ×4 (05:50→23:31)
[2018-10-29] MEDS: INSULIN HUMULIN R 100 UNIT/ML 3ML SQ SCH ×4 (06:39→21:00)
[2018-10-29 08:00] VITALS: BP 144/74
[2018-10-29] MEDS: FUROSEMIDE 20 MG TABLET PO SCH ×2 (08:00→17:00)
[2018-10-29 08:21] LABS: ALBUMIN 1.6 g/dL (3.5-5.0); BILIRUBIN,DIRECT 0.1 mg/dL (0.0-0.3); BILIRUBIN,TOTAL 0.2 mg/dL (0.2-1.0); TOTAL PROTEIN, SERUM 5.5 g/dL (6.0-8.3)
[2018-10-29] MEDS: VITAMIN B COMPLEX 1 CAPSULE PO SCH (10:27)
[2018-10-29] MEDS: PANTOPRAZOLE SODIUM 40 MG TABLET.DR PO SCH (10:27)
[2018-10-29] MEDS: FOLIC ACID/VITAMIN B COMP W-C 1 MG CAPSULE PO SCH (10:28)
[2018-10-29] MEDS: FERROUS SULFATE 325 MG TABLET.DR PO SCH (10:28)
[2018-10-29] MEDS: CALCIUM ACETATE 667 MG CAPSULE PO SCH ×3 (10:36→17:00)
[2018-10-29 12:00] VITALS: BP 148/76
--- NOTE | 2018-10-29 13:42 | NUR ---
CM Note: [facility] pending approval and chair time Spoke to [facility], aware pt s/p right permacath yesterday 10/28, pending 1st dialysis today. Will send clinicals and labs once available. Stated currently working on pt. Pt pending approval and chair time. Primary nurse aware. CM to cont to follow up.
[2018-10-29 16:00] VITALS: BP 153/76
[2018-10-29] MEDS ORDERED: HEPARIN SODIUM 5000UNIT/ML 1ML VIAL ONE (17:07)
[2018-10-29] MEDS: CEFTRIAXONE SODIUM 1 GM IV SCH (18:36)
[2018-10-29 19:15] VITALS: BP 184/72
[2018-10-29] MEDS: INSULIN GLARGINE 100 UNITS/ML 10 ML VIAL SQ SCH (21:00)
[2018-10-29] MEDS: CETIRIZINE HCL 5 MG TABLET PO SCH (22:24)
[2018-10-29] MEDS: DILTIAZEM HCL 120 MG CAP.SR.24H PO SCH (22:24)
[2018-10-29 23:15] VITALS: BP 161/74
--- NOTE | 2018-10-29 23:15 | NUR ---
NN CALL PLACED TO [facility] AND TO DR Davidson RIVERS TO INFORM OF VEIN MAPPING IMPRESSION REPORT TO LT ARM. PER REPORT PATIENT HAS "THROMBOSIS DEMONSTRATED IN THE CEPHALIC VEIN IN THE MID UPPER FOREARM TO THE ANTECUBITAL FOSSA". REC' CALL BACK FROM Jayleen BANKS NP FOR [facility] AND INFORMED OF FINDING AND PENDING TO REPORT TO Davidson RIVERS. PATIENT DENIES PAIN TO LT ARM, NO SWELLING OR REDNESS TO ARM, SKIN WARM TO TOUCH AND STRONG RADIAL PULSE. WILL CONTINUE TO ASSESS LT ARM FOR CHANGES. PATIENT CONTINUES WITH LT ARM PRECAUTIONS IN PLACE.
[2018-10-30 03:15] VITALS: BP 136/72
[2018-10-30 04:48] LABS: BASOPHILS % (AUTO) 0.6 % (0.0-5.0); EOSINOPHILS % (AUTO) 7.6 % (0.0-8.0); HEMATOCRIT 22.4 % (36-48); LYMPHOCYTES % (AUTO) 25.9 % (21.0-51.0); MEAN CORPUSCULAR HEMOGLOBIN 30.4 pg (27.0-33.0); MEAN CORPUSCULAR HGB CONC 34.2 g/dL (32.0-36.0); MONOCYTES % (AUTO) 11.1 % (3.0-13.0); NEUTROPHILS % (AUTO) 54.8 % (40.0-77.0); PLATELET COUNT (AUTO) 231 K/uL (130-400); RED BLOOD CELL COUNT(AUTO) 2.52 MIL/uL (4.00-5.50); RED CELL DISTRIBUTION WIDTH 15.5 % (11.0-15.5); WHITE BLOOD COUNT (AUTO) 3.7 K/uL (4.8-10.8)
[2018-10-30 05:01] LABS: CREATININE 2.9 mg/dL (0.5-1.5); POTASSIUM 3.5 mmol/L (3.5-5.1)
[2018-10-30] MEDS: IPRATROPIUM/ALBUTEROL SULFATE 3 ML SOLUTION IH SCH ×4 (06:01→23:42)
[2018-10-30] MEDS: INSULIN HUMULIN R 100 UNIT/ML 3ML SQ SCH ×4 (07:02→20:23)
[2018-10-30 08:00] VITALS: BP 152/73
[2018-10-30] MEDS: FUROSEMIDE 20 MG TABLET PO SCH ×2 (08:00→17:00)
[2018-10-30] MEDS: CALCIUM ACETATE 667 MG CAPSULE PO SCH ×3 (08:00→17:00)
[2018-10-30 08:22] LABS: HEPATITIS A ANTIBODY IGM Negative (Negative); HEPATITIS B CORE IGM Negative (Negative); HEPATITIS Bs ANTIGEN SCREEN P Negative (Negative)
[2018-10-30] MEDS: PANTOPRAZOLE SODIUM 40 MG TABLET.DR PO SCH (10:50)
[2018-10-30] MEDS: FERROUS SULFATE 325 MG TABLET.DR PO SCH (10:50)
[2018-10-30] MEDS: VITAMIN B COMPLEX 1 CAPSULE PO SCH (10:50)
[2018-10-30] MEDS: FOLIC ACID/VITAMIN B COMP W-C 1 MG CAPSULE PO SCH (10:50)
[2018-10-30 11:00] VITALS: BP 156/74
--- NOTE | 2018-10-30 11:27 | NUR ---
CM Note: [facility] pending approval and chair time Faxed labs and Day#1 Dialysis Therapy and order. Sp[facility] Hien [facility], received clinicals. Still currently working on approval and chair time. Aware pt pending veing mapping and av placement by dr evens edouard. Pt pending approval and chair time. Primary nurse aware. CM to cont to follow up.
[2018-10-30] MEDS ORDERED: HEPARIN SODIUM 5000UNIT/ML 1ML VIAL ONE (12:27)
[2018-10-30 16:00] VITALS: BP 153/78
[2018-10-30] MEDS ORDERED: COMPOUND IV MISC 1 EACH IVSOLN MISC PRN (16:15)
[2018-10-30] MEDS: CEFTRIAXONE SODIUM 1 GM IV SCH (17:20)
[2018-10-30 19:15] VITALS: BP 135/69
[2018-10-30] MEDS: INSULIN GLARGINE 100 UNITS/ML 10 ML VIAL SQ SCH (20:23)
[2018-10-30] MEDS: CETIRIZINE HCL 5 MG TABLET PO SCH (21:42)
[2018-10-30] MEDS: DILTIAZEM HCL 120 MG CAP.SR.24H PO SCH (21:42)
[2018-10-30 23:30] VITALS: BP 147/67
[2018-10-31 04:00] VITALS: BP 133/60
[2018-10-31 04:03] LABS: HEMATOCRIT 23.8 % (36-48); MEAN CORPUSCULAR HEMOGLOBIN 30.9 pg (27.0-33.0); MEAN CORPUSCULAR HGB CONC 34.5 g/dL (32.0-36.0); MEAN CORPUSCULAR VOLUME 89.6 fL (79-99); NUCLEATED RED BLOOD CELLS 0.1 % (0.0-0.19); PLATELET COUNT (AUTO) 229 K/uL (130-400); RED BLOOD CELL COUNT(AUTO) 2.66 MIL/uL (4.00-5.50); RED CELL DISTRIBUTION WIDTH 15.6 % (11.0-15.5); WHITE BLOOD COUNT (AUTO) 4.4 K/uL (4.8-10.8)
[2018-10-31 04:13] LABS: CREATININE 2.4 mg/dL (0.5-1.5)
[2018-10-31] MEDS: IPRATROPIUM/ALBUTEROL SULFATE 3 ML SOLUTION IH SCH (05:32)
[2018-10-31] MEDS: INSULIN HUMULIN R 100 UNIT/ML 3ML SQ SCH ×4 (06:00→21:00)
[2018-10-31 07:45] VITALS: BP 148/74
[2018-10-31] MEDS: CALCIUM ACETATE 667 MG CAPSULE PO SCH ×3 (07:51→17:13)
[2018-10-31] MEDS: PANTOPRAZOLE SODIUM 40 MG TABLET.DR PO SCH (07:51)
[2018-10-31] MEDS: FUROSEMIDE 20 MG TABLET PO SCH ×2 (07:51→17:12)
[2018-10-31] MEDS: FOLIC ACID/VITAMIN B COMP W-C 1 MG CAPSULE PO SCH (07:51)
[2018-10-31] MEDS: VITAMIN B COMPLEX 1 CAPSULE PO SCH (07:51)
[2018-10-31 11:39] VITALS: BP 154/59
[2018-10-31] MEDS: IRON SUCROSE COMPLEX 100 MG in SODIUM CHLORIDE 0.9% 50 ML IV SCH (11:47)
--- NOTE | 2018-10-31 13:21 | NUR ---
CM Note: [facility] approval and chair Spoke to Hien received updated clinicals, still working on approval and chair time. Aware pt pending AV placement. Primary nurse aware. Cm to cont to follow up.
--- NOTE | 2018-10-31 15:24 | NUR ---
CM Note: [facility] approved chair time MWF 4th shift Spoke to Magan w/[facility], pt has approval and chair time. Pt will be MW 4th shift, as per [facility] will call pt tomorrow for exact time. Informed pt and daughter regarding approval, given instructions and direction to facility. Answered questions. Informed daughter and pt facility will call to schedule appointment time tomorrow, pt and daughter aware to arrive at facility 30min prior to appointment time to register, given lists of requirements, pt and dtr to bring once appointment set up. Primary nurse aware. CM to cont to follow up.
[2018-10-31 16:42] VITALS: BP 170/74
[2018-10-31] MEDS: CEFTRIAXONE SODIUM 1 GM IV SCH (17:12)
[2018-10-31 19:45] VITALS: BP 188/87
[2018-10-31] MEDS: INSULIN GLARGINE 100 UNITS/ML 10 ML VIAL SQ SCH (21:00)
[2018-10-31] MEDS: DILTIAZEM HCL 120 MG CAP.SR.24H PO SCH (21:46)
[2018-10-31] MEDS: CETIRIZINE HCL 5 MG TABLET PO SCH (21:46)
[2018-10-31 23:32] VITALS: BP 150/77
[2018-11-01 03:42] VITALS: BP 140/69
[2018-11-01 04:17] LABS: HEMATOCRIT 25.5 % (36-48); MEAN CORPUSCULAR HEMOGLOBIN 30.2 pg (27.0-33.0); MEAN CORPUSCULAR HGB CONC 33.7 g/dL (32.0-36.0); MEAN CORPUSCULAR VOLUME 89.5 fL (79-99); PLATELET COUNT (AUTO) 249 K/uL (130-400); RED BLOOD CELL COUNT(AUTO) 2.85 MIL/uL (4.00-5.50); RED CELL DISTRIBUTION WIDTH 15.5 % (11.0-15.5); WHITE BLOOD COUNT (AUTO) 4.9 K/uL (4.8-10.8)
[2018-11-01 04:21] LABS: CREATININE 3.1 mg/dL (0.5-1.5); POTASSIUM 3.5 mmol/L (3.5-5.1)
[2018-11-01] MEDS: INSULIN HUMULIN R 100 UNIT/ML 3ML SQ SCH ×4 (06:05→21:00)
[2018-11-01] MEDS: IPRATROPIUM/ALBUTEROL SULFATE 3 ML SOLUTION IH PRN ×4 (07:06→23:28)
[2018-11-01 08:00] VITALS: BP 152/73
[2018-11-01] MEDS: FUROSEMIDE 20 MG TABLET PO SCH ×2 (08:00→16:26)
[2018-11-01] MEDS ORDERED: EPOETIN ALFA 10,000 UNIT/ML VIAL SQ SCH (09:00)
[2018-11-01] MEDS: CALCIUM ACETATE 667 MG CAPSULE PO SCH ×3 (10:20→16:26)
[2018-11-01] MEDS: VITAMIN B COMPLEX 1 CAPSULE PO SCH (10:20)
[2018-11-01] MEDS: FOLIC ACID/VITAMIN B COMP W-C 1 MG CAPSULE PO SCH (10:20)
[2018-11-01] MEDS: PANTOPRAZOLE SODIUM 40 MG TABLET.DR PO SCH (10:20)
[2018-11-01 11:00] VITALS: BP 159/87
--- NOTE | 2018-11-01 11:58 | NUR ---
currently receiving dialysis, refuses phoslo, not eating.
--- NOTE | 2018-11-01 12:44 | NUR ---
Nutrition Follow-up: Pt. S/p Perm-a-cath placement(10/28/18). HD tx initiated on 10/29/18. Pt. on Renal dialysis diet with good p.o. intake, per pt. Labs reviewed(Alb 1.6). LBM: 10/29/18. SR-21, elastic. Pt. previously educated on renal Non Dialysis diet on 10/25/18 and provided with education material. Briefly reviewed Renal Dialysis diet guidelines with pt. and daughter(via phone). Informed pt. and daughter that the only change in diet now that pt. has been started on HD is that pt. now requires more protein in diet. Pt. and daughter verbalized understanding. Recommendations: 1) Rec. 60gm CCD Renal dialysis diet. 2) Rec. 30ml ProMod TID with meals. 3) Briefly reviewed / reinforced Renal Dialysis diet with pt. / daughter(via phone). 4) Continue to monitor pt's nutritional status. 5) RD to follow-up in 5-7 days. Addendum: 11/01/18 at [address] Amended: Links added.
[2018-11-01] MEDS ORDERED: HEPARIN SODIUM 5000UNIT/ML 1ML VIAL ONE (13:58)
[2018-11-01] MEDS: EPOETIN ALFA 10,000 UNIT/ML VIAL SQ SCH (14:53)
[2018-11-01] MEDS: IRON SUCROSE COMPLEX 100 MG in SODIUM CHLORIDE 0.9% 50 ML IV SCH (14:53)
[2018-11-01] MEDS: CEFTRIAXONE SODIUM 1 GM IV SCH (14:53)
[2018-11-01] MEDS ORDERED: HEPARIN SODIUM 5000UNIT/ML 1ML VIAL SQ SCH (15:15)
[2018-11-01] MEDS ORDERED: SODIUM CHLORIDE 0.9% 1000ML 1,000 ML IV PRN (15:15)
[2018-11-01 16:00] VITALS: BP 112/70
--- NOTE | 2018-11-01 19:52 | NUR ---
LEFT UPPER ARM ASSESSMENT VEIN MAPPING REPORTEDLY DONE 10/29/18 , NO VISIBLE MARKINGS ON THE SAID UPPER EXTREMITY, PT DENIES MARKINGS PLACED AND CONFIRMED WITH DAUGHTER , AMBREEN DECKERFT ALSO CONFIRMED ABSENCE OF MARKINGS Addendum: 11/02/18 at 0345 by CHATO RAMIREZ RN RN Amended: Links added.
[2018-11-01 20:00] VITALS: BP 128/55
[2018-11-01] MEDS: DILTIAZEM HCL 120 MG CAP.SR.24H PO SCH (21:35)
[2018-11-01] MEDS: CETIRIZINE HCL 5 MG TABLET PO SCH (21:35)
[2018-11-01] MEDS: INSULIN GLARGINE 100 UNITS/ML 10 ML VIAL SQ SCH (21:36)
[2018-11-02] VITALS: BP 142/68
[2018-11-02 03:55] VITALS: BP 135/61
[2018-11-02 04:47] LABS: HEMATOCRIT 24.3 % (36-48); MEAN CORPUSCULAR HEMOGLOBIN 30.6 pg (27.0-33.0); MEAN CORPUSCULAR HGB CONC 34.5 g/dL (32.0-36.0); MEAN CORPUSCULAR VOLUME 88.5 fL (79-99); PLATELET COUNT (AUTO) 243 K/uL (130-400); RED BLOOD CELL COUNT(AUTO) 2.75 MIL/uL (4.00-5.50); RED CELL DISTRIBUTION WIDTH 15.3 % (11.0-15.5); WHITE BLOOD COUNT (AUTO) 4.9 K/uL (4.8-10.8)
[2018-11-02 04:52] LABS: CREATININE 2.4 mg/dL (0.5-1.5); POTASSIUM 3.5 mmol/L (3.5-5.1)
[2018-11-02 05:23] LABS: BAND NEUTROPHILS % (MANUAL) 1 % (0-2); EOSINOPHILS % (MANUAL) 5 % (1-6); LYMPHOCYTES % (MANUAL) 26 % (22-44); MAN.DIFF COMMENT-IMPRESSION MANUAL DIFFERENTIAL; MONOCYTES % (MANUAL) 15 % (2-9); SEGMENTED NEUTROPHILS % 53 % (40-70)
[2018-11-02 05:25] LABS: PLATELET MORPHOLOGY COMMENT ADEQUATE
[2018-11-02] MEDS: IPRATROPIUM/ALBUTEROL SULFATE 3 ML SOLUTION IH PRN ×4 (06:25→23:34)
[2018-11-02] MEDS: INSULIN HUMULIN R 100 UNIT/ML 3ML SQ SCH ×4 (06:30→21:00)
[2018-11-02 08:00] VITALS: BP 131/64
[2018-11-02] MEDS: CALCIUM ACETATE 667 MG CAPSULE PO SCH ×3 (08:13→16:43)
[2018-11-02] MEDS: FOLIC ACID/VITAMIN B COMP W-C 1 MG CAPSULE PO SCH (08:13)
[2018-11-02] MEDS: IRON SUCROSE COMPLEX 100 MG in SODIUM CHLORIDE 0.9% 50 ML IV SCH (08:13)
[2018-11-02] MEDS: VITAMIN B COMPLEX 1 CAPSULE PO SCH (08:13)
[2018-11-02] MEDS: FUROSEMIDE 20 MG TABLET PO SCH ×2 (08:14→16:43)
[2018-11-02] MEDS: PANTOPRAZOLE SODIUM 40 MG TABLET.DR PO SCH (08:14)
[2018-11-02 12:00] VITALS: BP 140/78
[2018-11-02 16:00] VITALS: BP 156/72
[2018-11-02] MEDS: CEFTRIAXONE SODIUM 1 GM IV SCH (16:43)
[2018-11-02 20:00] VITALS: BP 174/83
[2018-11-02] MEDS: CETIRIZINE HCL 5 MG TABLET PO SCH (21:07)
[2018-11-02] MEDS: DILTIAZEM HCL 120 MG CAP.SR.24H PO SCH (21:08)
[2018-11-02] MEDS: INSULIN GLARGINE 100 UNITS/ML 10 ML VIAL SQ SCH (21:09)
[2018-11-03] VITALS: BP 145/83
[2018-11-03 04:00] VITALS: BP 145/67
[2018-11-03 05:08] LABS: HEMATOCRIT 26.2 % (36-48); MEAN CORPUSCULAR HEMOGLOBIN 30.6 pg (27.0-33.0); MEAN CORPUSCULAR HGB CONC 34.4 g/dL (32.0-36.0); MEAN CORPUSCULAR VOLUME 88.9 fL (79-99); PLATELET COUNT (AUTO) 289 K/uL (130-400); RED BLOOD CELL COUNT(AUTO) 2.94 MIL/uL (4.00-5.50); RED CELL DISTRIBUTION WIDTH 15.6 % (11.0-15.5); WHITE BLOOD COUNT (AUTO) 5.5 K/uL (4.8-10.8)
[2018-11-03 05:17] LABS: CREATININE 3.4 mg/dL (0.5-1.5); MAGNESIUM 1.7 mg/dL (1.80-2.40); POTASSIUM 3.5 mmol/L (3.5-5.1)
[2018-11-03 05:20] LABS: BAND NEUTROPHILS % (MANUAL) 4 % (0-2); EOSINOPHILS % (MANUAL) 16 % (1-6); LYMPHOCYTES % (MANUAL) 28 % (22-44); MAN.DIFF COMMENT-IMPRESSION MANUAL DIFFERENTIAL; MONOCYTES % (MANUAL) 12 % (2-9); PLATELET MORPHOLOGY COMMENT ADEQUATE; SEGMENTED NEUTROPHILS % 40 % (40-70)
[2018-11-03] MEDS: IPRATROPIUM/ALBUTEROL SULFATE 3 ML SOLUTION IH PRN ×3 (06:14→18:14)
[2018-11-03] MEDS: INSULIN HUMULIN R 100 UNIT/ML 3ML SQ SCH ×4 (06:14→20:51)
[2018-11-03 08:01] VITALS: BP 134/72
[2018-11-03] MEDS: FUROSEMIDE 20 MG TABLET PO SCH ×2 (08:08→16:42)
[2018-11-03] MEDS: VITAMIN B COMPLEX 1 CAPSULE PO SCH (08:08)
[2018-11-03] MEDS: PANTOPRAZOLE SODIUM 40 MG TABLET.DR PO SCH (08:08)
[2018-11-03] MEDS: CALCIUM ACETATE 667 MG CAPSULE PO SCH ×3 (08:08→16:42)
[2018-11-03] MEDS: IRON SUCROSE COMPLEX 100 MG in SODIUM CHLORIDE 0.9% 50 ML IV SCH (08:08)
[2018-11-03] MEDS: FOLIC ACID/VITAMIN B COMP W-C 1 MG CAPSULE PO SCH (08:08)
[2018-11-03 11:36] VITALS: BP 121/66
[2018-11-03 16:33] VITALS: BP 138/77
[2018-11-03] MEDS: CEFTRIAXONE SODIUM 1 GM IV SCH (16:42)
[2018-11-03] MEDS ORDERED: TROLAMINE SALICYLATE CREAM 85 GM TUBE TP PRN (17:30)
[2018-11-03 20:00] VITALS: BP 143/73
[2018-11-03] MEDS: CETIRIZINE HCL 5 MG TABLET PO SCH (20:49)
[2018-11-03] MEDS: DILTIAZEM HCL 120 MG CAP.SR.24H PO SCH (20:49)
[2018-11-03] MEDS: INSULIN GLARGINE 100 UNITS/ML 10 ML VIAL SQ SCH (20:52)
[2018-11-04] VITALS (19 sets, daily range): BP systolic 101–156; BP diastolic 57–75
[2018-11-04] MEDS: IPRATROPIUM/ALBUTEROL SULFATE 3 ML SOLUTION IH PRN ×4 (00:07→18:05)
[2018-11-04] MEDS ORDERED: DEXTROSE 50%-WATER 25 GM/50 ML VIAL ONE (03:48)
--- NOTE | 2018-11-04 03:56 | NUR ---
low bs BS 48, PT SYMPTOMATIC ,WEAK DROWSY ,NO ACUTE DISTRESS OTHERWISE , D50 GIVEN SLOW IVP AND FLUSHED ,TOLERATED WELL Addendum: 11/04/18 at 0357 by CHATO RAMIREZ RN RN Amended: Links added.
[2018-11-04] MEDS ORDERED: GLUCAGON 1MG KIT 1 MG ML IM PRN (04:00)
[2018-11-04] MEDS ORDERED: DEXTROSE 50%-WATER 50 ML DISP.SYRIN IV PRN (04:00)
[2018-11-04 04:47] LABS: MEAN CORPUSCULAR HGB CONC 34.7 g/dL (32.0-36.0); MEAN CORPUSCULAR VOLUME 89.1 fL (79-99); PLATELET COUNT (AUTO) 245 K/uL (130-400); RED CELL DISTRIBUTION WIDTH 15.8 % (11.0-15.5); WHITE BLOOD COUNT (AUTO) 5.9 K/uL (4.8-10.8)
[2018-11-04 04:56] LABS: CREATININE 3.9 mg/dL (0.5-1.5)
[2018-11-04 04:58] LABS: INR 0.95 (0.85-1.15); PARTIAL THROMBOPLASTIN TIME 29.2 SEC (26.3-35.5)
[2018-11-04] MEDS: INSULIN HUMULIN R 100 UNIT/ML 3ML SQ SCH ×4 (06:25→21:00)
[2018-11-04] MEDS ORDERED: ROPIVACAINE 0.5% 5MG/ML 30ML IJ ONE (07:15)
[2018-11-04] MEDS ORDERED: KETAMINE 50MG/ML SYRINGE 50 MG/ML DISP.SYRIN IV ONE (07:15)
[2018-11-04] MEDS ORDERED: OCTYL 2-CYANOACRYLATE 1 EACH TP ONE (07:16)
[2018-11-04] MEDS ORDERED: BACITRACIN 50,000 UNIT VIAL ONE (07:17)
[2018-11-04] MEDS ORDERED: PAPAVERINE HCL 30 MG/ML 2ML VIAL ONE (07:17)
[2018-11-04] MEDS ORDERED: MIDAZOLAM HCL 1 MG/ML 2ML VIAL ONE (07:53)
[2018-11-04] MEDS ORDERED: FENTANYL CITRATE PF 50 MCG/1 ML 2ML VIAL ONE (07:53)
[2018-11-04] MEDS ORDERED: PROPOFOL 10 MG/ML 20ML VIAL IV ONE (07:55)
[2018-11-04] MEDS: FUROSEMIDE 20 MG TABLET PO SCH ×2 (08:00→17:18)
[2018-11-04] MEDS: CALCIUM ACETATE 667 MG CAPSULE PO SCH ×3 (08:00→17:18)
[2018-11-04] MEDS: PANTOPRAZOLE SODIUM 40 MG TABLET.DR PO SCH (12:21)
[2018-11-04] MEDS: FOLIC ACID/VITAMIN B COMP W-C 1 MG CAPSULE PO SCH (12:21)
[2018-11-04] MEDS: VITAMIN B COMPLEX 1 CAPSULE PO SCH (12:22)
[2018-11-04] MEDS: IRON SUCROSE COMPLEX 100 MG in SODIUM CHLORIDE 0.9% 50 ML IV SCH (12:28)
--- NOTE | 2018-11-04 13:21 | NUR ---
FAMILY QUESTIONS; FAMIL/DAUGHTER ASKING IF THE SURGEYR WAS A FISTULA OR AN AVG; NOTES SAY FISTULA, THIS INFO WAS RELAYED, FAMILY QUESTIONS RE DIALYSIS AND BILLING; STATES THAT [facility] HAS SOCIAL WORKERS TO ASSIST WITH MEDICARE/MEIDAID,ETC
[2018-11-04] MEDS ORDERED: LIDOCAINE HCL-MPF 1% 2ML VIAL IJ PRN (15:15)
[2018-11-04] MEDS ORDERED: HEPARIN SODIUM 5000UNIT/ML 1ML VIAL IJ PRN (15:15)
[2018-11-04] MEDS ORDERED: ACETAMINOPHEN 325 MG TAB PO PRN (15:15)
[2018-11-04] MEDS ORDERED: 0.9% SODIUM CHLORIDE 1000 ML IV BAG IV PRN (15:15)
[2018-11-04] MEDS ORDERED: SODIUM CHLORIDE 0.9% 1000ML 1,000 ML IV PRN (15:15)
[2018-11-04] MEDS: CEFTRIAXONE SODIUM 1 GM IV SCH (17:24)
[2018-11-04] MEDS: ACETAMINOPHEN 325 MG TAB PO PRN ×2 (17:27→22:07)
[2018-11-04] MEDS: INSULIN GLARGINE 100 UNITS/ML 10 ML VIAL SQ SCH ×2 (21:00→22:02)
[2018-11-04] MEDS: DILTIAZEM HCL 120 MG CAP.SR.24H PO SCH (22:01)
[2018-11-04] MEDS: CETIRIZINE HCL 5 MG TABLET PO SCH (22:03)
[2018-11-04] MEDS ORDERED: MORPHINE SULFATE 2 MG/ML 1ML SYG IVP PRN (23:30)
[2018-11-05] MEDS ORDERED: MORPHINE SULFATE 2 MG/ML 1ML SYG ONE (00:05)
[2018-11-05 04:00] VITALS: BP 144/68
[2018-11-05] MEDS: INSULIN HUMULIN R 100 UNIT/ML 3ML SQ SCH ×4 (05:58→20:58)
[2018-11-05 06:00] LABS: HEMATOCRIT 25.8 % (36-48); MEAN CORPUSCULAR HEMOGLOBIN 30.4 pg (27.0-33.0); MEAN CORPUSCULAR HGB CONC 33.7 g/dL (32.0-36.0); MEAN CORPUSCULAR VOLUME 90.1 fL (79-99); PLATELET COUNT (AUTO) 277 K/uL (130-400); RED BLOOD CELL COUNT(AUTO) 2.86 MIL/uL (4.00-5.50); WHITE BLOOD COUNT (AUTO) 5.8 K/uL (4.8-10.8)
[2018-11-05 06:20] LABS: CREATININE 2.5 mg/dL (0.5-1.5); POTASSIUM 3.6 mmol/L (3.5-5.1)
[2018-11-05 07:27] LABS: EOSINOPHILS % (MANUAL) 4 % (1-6); LYMPHOCYTES % (MANUAL) 25 % (22-44); MONOCYTES % (MANUAL) 5 % (2-9); SEGMENTED NEUTROPHILS % 66 % (40-70)
[2018-11-05 07:28] LABS: MAN.DIFF COMMENT-IMPRESSION MANUAL DIFFERENTIAL
[2018-11-05 07:29] LABS: PLATELET MORPHOLOGY COMMENT ADEQUATE
[2018-11-05 08:31] VITALS: BP 127/70
[2018-11-05] MEDS: FUROSEMIDE 20 MG TABLET PO SCH ×2 (08:39→17:07)
[2018-11-05] MEDS: PANTOPRAZOLE SODIUM 40 MG TABLET.DR PO SCH (08:39)
[2018-11-05] MEDS: FOLIC ACID/VITAMIN B COMP W-C 1 MG CAPSULE PO SCH (08:39)
[2018-11-05] MEDS: VITAMIN B COMPLEX 1 CAPSULE PO SCH (08:39)
[2018-11-05] MEDS: CALCIUM ACETATE 667 MG CAPSULE PO SCH ×3 (08:39→17:06)
[2018-11-05] MEDS: ACETAMINOPHEN 325 MG TAB PO PRN ×2 (08:40→14:25)
[2018-11-05 11:53] VITALS: BP 133/59
[2018-11-05 17:00] VITALS: BP 128/70
[2018-11-05 20:00] VITALS: BP 147/72
[2018-11-05] MEDS: CETIRIZINE HCL 5 MG TABLET PO SCH (20:57)
[2018-11-05] MEDS: DILTIAZEM HCL 120 MG CAP.SR.24H PO SCH (20:58)
[2018-11-05] MEDS: INSULIN GLARGINE 100 UNITS/ML 10 ML VIAL SQ SCH (20:58)
[2018-11-06] VITALS: BP 154/78
[2018-11-06 03:57] VITALS: BP 153/65
[2018-11-06] MEDS: INSULIN HUMULIN R 100 UNIT/ML 3ML SQ SCH ×2 (05:40→11:30)
[2018-11-06] MEDS: CALCIUM ACETATE 667 MG CAPSULE PO SCH ×2 (08:00→14:00)
[2018-11-06] MEDS: FUROSEMIDE 20 MG TABLET PO SCH (08:00)
[2018-11-06 08:11] VITALS: BP 156/70
[2018-11-06] MEDS: VITAMIN B COMPLEX 1 CAPSULE PO SCH (09:00)
[2018-11-06] MEDS: FOLIC ACID/VITAMIN B COMP W-C 1 MG CAPSULE PO SCH (09:00)
[2018-11-06] MEDS: PANTOPRAZOLE SODIUM 40 MG TABLET.DR PO SCH (09:00)
[2018-11-06 11:21] VITALS: BP 96/54
--- NOTE | 2018-11-06 12:15 | NUR ---
SPOKE TO DR. Stephen SALEH. PT CAN BE DISCHARGED FROM HIS STAND POINT. F/U WITH HIM AT THIS OFFICE IN 2 WEEKS.
--- NOTE | 2018-11-06 18:30 | NUR ---
DISCHARGE PATIENT GIVEN DISCHARGE INSTRUCTIONS AND EDUCATION ON F/U APPOINTMENTS, NEW FISTULA CARE,RENAL DIET,AND DIALYSIS SCHEDULE. PATIENT VERBALIZED UNDERSTANDING OF ALL EDUCATION GIVEN VIA TEACH BACK. NO CONCERNS VOICED. IV DISCONTINUED, CATHETER INTACT. FISTULA DRESSING CHANGED, PATIENT TOLERATED WELL, NO REDNESS, DISCHARGE OR TENDERNESS NOTED. PATIENT LEFT VIA WHEELCHAIR TO PRIVATE CAR. ALL BELONGING TAKEN WITH. NO DISTRESS NOTED UPON DISCHARGE.
== END 2018-11-06 18:38 | disposition home or self-care (01) | DRG 673 ==
LOC: EDH 12:15 → EDHIP 12:16 → 4CH 22:02
PROVIDERS: ADMIT Internal Medicine; ATTEND Internal Medicine
PROC: 0JH63XZ Insertion of Tunneled Vascular Access Device into Chest Subcutaneous Tissue and Fascia, Percutaneous Approach (ICD-10-PCS; 2018-10-28)
PROC: 02H633Z Insertion of Infusion Device into Right Atrium, Percutaneous Approach (ICD-10-PCS; 2018-10-28)
PROC: B2141ZZ Fluoroscopy of Right Heart using Low Osmolar Contrast (ICD-10-PCS; 2018-10-28)
PROC: B244ZZZ Ultrasonography of Right Heart (ICD-10-PCS; 2018-10-28)
PROC: 5A1D70Z Performance of Urinary Filtration, Intermittent, Less than 6 Hours Per Day (ICD-10-PCS; 2018-10-29)
PROC: 5A1D70Z Performance of Urinary Filtration, Intermittent, Less than 6 Hours Per Day (ICD-10-PCS; 2018-10-30)
PROC: 5A1D70Z Performance of Urinary Filtration, Intermittent, Less than 6 Hours Per Day (ICD-10-PCS; 2018-11-01)
PROC: 5A1D70Z Performance of Urinary Filtration, Intermittent, Less than 6 Hours Per Day (ICD-10-PCS; 2018-11-04)
PROC: 03180ZD Bypass Left Brachial Artery to Upper Arm Vein, Open Approach (ICD-10-PCS; principal; 2018-11-04 07:30)
PROC: 5A1D70Z Performance of Urinary Filtration, Intermittent, Less than 6 Hours Per Day (ICD-10-PCS; 2018-11-06)
DX: N39.0 Urinary tract infection, site not specified (principal); N18.6 End stage renal disease; I13.2 Hypertensive heart and chronic kidney disease with heart failure and with stage 5 chronic kidney disease, or end stage renal disease; N17.9 Acute kidney failure, unspecified; D50.9 Iron deficiency anemia, unspecified; D63.1 Anemia in chronic kidney disease; E11.21 Type 2 diabetes mellitus with diabetic nephropathy; E11.22 Type 2 diabetes mellitus with diabetic chronic kidney disease; E11.51 Type 2 diabetes mellitus with diabetic peripheral angiopathy without gangrene; E78.2 Mixed hyperlipidemia; I50.9 Heart failure, unspecified; I80.8 Phlebitis and thrombophlebitis of other sites; K21.9 Gastro-esophageal reflux disease without esophagitis; J45.909 Unspecified asthma, uncomplicated; Z99.2 Dependence on renal dialysis; Z91.15 Patient's noncompliance with renal dialysis; Z90.710 Acquired absence of both cervix and uterus; Z87.440 Personal history of urinary (tract) infections; Z79.4 Long term (current) use of insulin; Z90.722 Acquired absence of ovaries, bilateral; Z83.3 Family history of diabetes mellitus
CPT/HCPCS: 36415; 36558; 76770; 77001; 80048; 80053; 80061; 80074; 80076; 81001; 82728; 82948; 83036; 83540; 83550; 83690; 83735; 83880; 84100; 84484; 84550; 85025; 85027; 85610; 85730; 87088; 87520; 90935; 93005; 93971; 94640; 94664; C1750; G0378; J0360; J0696; J0885; J1644; J1756; J1815; J2250; J2270; J2405; J2440; J2550; J2704; J2795; J3010; J3490; J7030; J7070

== ENCOUNTER 2019-01-20 00:06 | Emergency (ER) | payer SELFPAY ==
[~2019-01-20 00:06] MED LIST changes: +ALBU6.7H IH; -AMLO5TAB4 PO; -ASPI-1005 PO; -BECL8.7A7 IH; +CETI10TA57 PO; +DILT240C11 PO; +GUAI-1211 PO; -HYDR-3421 PO; -HYDR25 PO; -METO25 PO
[2019-01-20] MEDS ORDERED: ONDANSETRON HCL 4 MG/2 ML VIAL ONE (01:00)
[2019-01-20 01:06] LABS: BASOPHILS % (AUTO) 0.3 % (0.0-5.0); EOSINOPHILS % (AUTO) 1.6 % (0.0-8.0); HEMATOCRIT 35.5 % (36-48); LYMPHOCYTES % (AUTO) 8.1 % (21.0-51.0); MEAN CORPUSCULAR HEMOGLOBIN 29.1 pg (27.0-33.0); MEAN CORPUSCULAR HGB CONC 33.5 g/dL (32.0-36.0); MEAN CORPUSCULAR VOLUME 86.9 fL (79-99); MONOCYTES % (AUTO) 4.2 % (3.0-13.0); NEUTROPHILS % (AUTO) 85.8 % (40.0-77.0); NUCLEATED RED BLOOD CELLS 0.1 % (0.0-0.19); PLATELET COUNT (AUTO) 142 K/uL (130-400); RED BLOOD CELL COUNT(AUTO) 4.08 MIL/uL (4.00-5.50); RED CELL DISTRIBUTION WIDTH 16.2 % (11.0-15.5); WHITE BLOOD COUNT (AUTO) 4.7 K/uL (4.8-10.8)
[2019-01-20 01:13] LABS: APPEARANCE,URINE CLEAR (CLEAR); BILIRUBIN,URINE NEGATIVE (NEGATIVE); COLOR,URINE YELLOW (YELLOW); GLUCOSE, URINE (UA) 500 mg/dL (NEGATIVE); KETONES,URINE NEGATIVE (NEGATIVE); LEUKOCYTE ESTERASE ,URINE NEGATIVE (NEGATIVE); NITRATE,URINE NEGATIVE (NEGATIVE); OCCULT BLOOD,URINE SMALL (NEGATIVE); PH,URINE 7.5 (5.0-8.0); PROTEIN,URINE >=300 mg/dL (NEGATIVE); UROBILINOGEN,URINE 0.2 mg/dL (0.2-1.0)
[2019-01-20 01:23] LABS: BILIRUBIN,TOTAL 0.4 mg/dL (0.2-1.0); CREATININE 4.6 mg/dL (0.5-1.5); POTASSIUM 4.4 mmol/L (3.5-5.1)
[2019-01-20] MEDS ORDERED: ACETAMINOPHEN 325 MG TAB ONE (01:48)
[2019-01-20 01:53] LABS: BACTERIA,URINE Few /HPF (None Seen)
== END 2019-01-20 04:58 | disposition home or self-care (01) ==
LOC: EDH 00:06
DX: T62.8X1A Toxic effect of other specified noxious substances eaten as food, accidental (unintentional), initial encounter (principal); R11.2 Nausea with vomiting, unspecified; Y92.89 Other specified places as the place of occurrence of the external cause; I12.0 Hypertensive chronic kidney disease with stage 5 chronic kidney disease or end stage renal disease; E11.22 Type 2 diabetes mellitus with diabetic chronic kidney disease; N18.6 End stage renal disease; J45.909 Unspecified asthma, uncomplicated; K21.9 Gastro-esophageal reflux disease without esophagitis; E78.5 Hyperlipidemia, unspecified; Z90.710 Acquired absence of both cervix and uterus; Z99.2 Dependence on renal dialysis
CPT/HCPCS: 36415; 80053; 81001; 82550; 83690; 84484 ×2; 85025; 93005 ×2; 96361; 96374; 99285; J2405

== ENCOUNTER 2019-02-01 17:11 | Emergency (ER) | payer MEDICARE, SELFPAY ==
[2019-02-01 19:28] LABS: BASOPHILS % (AUTO) 0.3 % (0.0-5.0); EOSINOPHILS % (AUTO) 2.8 % (0.0-8.0); HEMATOCRIT 31.3 % (36-48); LYMPHOCYTES % (AUTO) 23.4 % (21.0-51.0); MEAN CORPUSCULAR HEMOGLOBIN 28.9 pg (27.0-33.0); MEAN CORPUSCULAR HGB CONC 33.8 g/dL (32.0-36.0); MEAN CORPUSCULAR VOLUME 85.5 fL (79-99); MONOCYTES % (AUTO) 8.3 % (3.0-13.0); NEUTROPHILS % (AUTO) 65.2 % (40.0-77.0); PLATELET COUNT (AUTO) 194 K/uL (130-400); RED BLOOD CELL COUNT(AUTO) 3.67 MIL/uL (4.00-5.50); RED CELL DISTRIBUTION WIDTH 16.1 % (11.0-15.5)
[2019-02-01 19:42] LABS: CREATININE 3.6 mg/dL (0.5-1.5); POTASSIUM 3.7 mmol/L (3.5-5.1)
[2019-02-01] MEDS ORDERED: TRAMADOL HCL 50 MG TABLET ONE (19:42)
[2019-02-01 19:47] LABS: ALBUMIN 2.7 g/dL (3.5-5.0); BILIRUBIN,TOTAL 0.2 mg/dL (0.2-1.0); TOTAL PROTEIN, SERUM 6.7 g/dL (6.0-8.3)
[2019-02-01] MEDS ORDERED: ONDANSETRON HCL 4 MG/2 ML VIAL ONE (20:54)
[2019-02-01] MEDS ORDERED: MORPHINE SULFATE 4 MG/1ML SYG ONE (20:54)
== END 2019-02-01 21:58 | disposition home or self-care (01) ==
LOC: EDH 17:11
DX: I12.0 Hypertensive chronic kidney disease with stage 5 chronic kidney disease or end stage renal disease (principal); E11.22 Type 2 diabetes mellitus with diabetic chronic kidney disease; N18.6 End stage renal disease; M54.2 Cervicalgia; J45.909 Unspecified asthma, uncomplicated; K21.9 Gastro-esophageal reflux disease without esophagitis; E78.5 Hyperlipidemia, unspecified; Z99.2 Dependence on renal dialysis; Z79.4 Long term (current) use of insulin
CPT/HCPCS: 36415; 71045; 80053; 84484; 85025; 93005; 96374; 96375; 99285; J2270; J2405

== ENCOUNTER 2019-02-02 07:49 | Emergency (ER) | payer MEDICARE ==
[2019-02-02 09:07] LABS: BASOPHILS % (AUTO) 0.4 % (0.0-5.0); EOSINOPHILS % (AUTO) 2.1 % (0.0-8.0); HEMATOCRIT 32.9 % (36-48); LYMPHOCYTES % (AUTO) 14.9 % (21.0-51.0); MEAN CORPUSCULAR HEMOGLOBIN 29.2 pg (27.0-33.0); MEAN CORPUSCULAR HGB CONC 33.4 g/dL (32.0-36.0); MEAN CORPUSCULAR VOLUME 87.3 fL (79-99); MONOCYTES % (AUTO) 7.1 % (3.0-13.0); NEUTROPHILS % (AUTO) 75.5 % (40.0-77.0); PLATELET COUNT (AUTO) 188 K/uL (130-400); RED BLOOD CELL COUNT(AUTO) 3.77 MIL/uL (4.00-5.50); RED CELL DISTRIBUTION WIDTH 15.9 % (11.0-15.5); WHITE BLOOD COUNT (AUTO) 6.3 K/uL (4.8-10.8)
[2019-02-02 09:11] LABS: CREATININE 3.9 mg/dL (0.5-1.5); POTASSIUM 4.1 mmol/L (3.5-5.1)
[2019-02-02 09:15] LABS: ALBUMIN 2.7 g/dL (3.5-5.0); BILIRUBIN,TOTAL 0.3 mg/dL (0.2-1.0); TOTAL PROTEIN, SERUM 6.7 g/dL (6.0-8.3)
[2019-02-02] MEDS ORDERED: MORPHINE SULFATE 4 MG/1ML SYG ONE (09:18)
== END 2019-02-02 10:44 | disposition home or self-care (01) ==
LOC: EDH 07:49
DX: T82.848A Pain due to vascular prosthetic devices, implants and grafts, initial encounter (principal); R07.89 Other chest pain; I12.9 Hypertensive chronic kidney disease with stage 1 through stage 4 chronic kidney disease, or unspecified chronic kidney disease; E11.22 Type 2 diabetes mellitus with diabetic chronic kidney disease; N18.3 Chronic kidney disease, stage 3 (moderate); Z94.0 Kidney transplant status; E78.5 Hyperlipidemia, unspecified; K21.9 Gastro-esophageal reflux disease without esophagitis; J45.909 Unspecified asthma, uncomplicated; Z90.710 Acquired absence of both cervix and uterus
CPT/HCPCS: 36415; 80053; 85025; 93971; 96372; 99285; J2270

== ENCOUNTER 2020-05-12 00:35 | Inpatient (IN) | payer MEDICARE ==
[~2020-05-12 00:35] MED LIST changes: -ALBU6.7H IH; +ALBU6.7H9 IH; -DILT240C11 PO; +DILT240C35 PO
[2020-05-12] MEDS ORDERED: MORPHINE SULFATE 2 MG/ML 1ML SYG ONE (01:17)
[2020-05-12] MEDS ORDERED: ACETAMINOPHEN 325 MG TAB ONE (01:17)
[2020-05-12 01:18] LABS: HEMATOCRIT 26.1 % (36-48); LYMPHOCYTES % (AUTO) 19.3 % (21.0-51.0); MEAN CORPUSCULAR HEMOGLOBIN 30.5 pg (27.0-33.0); MEAN CORPUSCULAR HGB CONC 33.3 g/dL (32.0-36.0); MEAN CORPUSCULAR VOLUME 91.6 fL (79-99); MONOCYTES % (AUTO) 4.7 % (3.0-13.0); NEUTROPHILS % (AUTO) 74.8 % (40.0-77.0); PLATELET COUNT (AUTO) 83 K/uL (130-400); RED BLOOD CELL COUNT(AUTO) 2.85 MIL/uL (4.00-5.50); WHITE BLOOD COUNT (AUTO) 1.7 K/uL (4.8-10.8)
[2020-05-12 01:25] LABS: CREATININE 7.6 mg/dL (0.5-1.5); POTASSIUM 4.9 mmol/L (3.5-5.1)
[2020-05-12 01:30] LABS: ALBUMIN 3.2 g/dL (3.5-5.0); BILIRUBIN,TOTAL 0.6 mg/dL (0.2-1.0); TOTAL PROTEIN, SERUM 7.7 g/dL (6.0-8.3)
[2020-05-12 01:38] LABS: APPEARANCE,URINE CLOUDY (CLEAR); BILIRUBIN,URINE NEGATIVE (NEGATIVE); COLOR,URINE YELLOW (YELLOW); GLUCOSE, URINE (UA) 250 mg/dL (NEGATIVE); KETONES,URINE NEGATIVE (NEGATIVE); LEUKOCYTE ESTERASE ,URINE LARGE (NEGATIVE); NITRATE,URINE NEGATIVE (NEGATIVE); OCCULT BLOOD,URINE SMALL (NEGATIVE); PH,URINE 8.5 (5.0-8.0); PROTEIN,URINE >=300 mg/dL (NEGATIVE); UROBILINOGEN,URINE 0.2 mg/dL (0.2-1.0)
[2020-05-12 01:48] LABS: WBC,URINE 51-100 /HPF (0-1)
[2020-05-12 01:49] LABS: BACTERIA,URINE Rare /HPF (None Seen); SQUAMOUS EPITHELIAL CELL,UR Rare /HPF (0-2)
[2020-05-12] MEDS ORDERED: SODIUM CHLORIDE 0.9% 1000ML 1,000 ML IV SCH (02:56)
[2020-05-12] MEDS ORDERED: ACETAMINOPHEN 325 MG TAB PO PRN ×3 (03:00→17:00)
[2020-05-12] MEDS ORDERED: ONDANSETRON HCL 4 MG/2 ML VIAL IV PRN (03:00)
[2020-05-12] MEDS: CEFTRIAXONE SODIUM 1 GM IV SCH (03:00)
[2020-05-12] MEDS ORDERED: CEFTRIAXONE SODIUM 1 GM ONE (03:12)
[2020-05-12] MEDS ORDERED: DILTIAZEM HCL 120 MG CAP.SR.24H PO ONE ×2 (03:12→19:17)
[2020-05-12] MEDS ORDERED: ALBUTEROL INHALER 90MCG/INH IH PRN (03:15)
[2020-05-12] MEDS ORDERED: LEVO500T2 PO (06:46)
[2020-05-12] MEDS ORDERED: CALC667T6 PO (06:46)
[2020-05-12 06:50] VITALS: BP 152/68
[2020-05-12] MEDS: INSULIN HUMULIN R 100 UNIT/ML 3ML SQ SCH ×4 (06:56→20:03)
[2020-05-12] MEDS: FUROSEMIDE 20 MG TABLET PO SCH ×2 (08:23→17:00)
[2020-05-12] MEDS: FERROUS SULFATE 325 MG TABLET.DR PO SCH (08:23)
[2020-05-12] MEDS: HYDROCODONE/ACETAMINOPHEN 5/325 MG TAB PO PRN ×3 (08:28→20:54)
[2020-05-12 08:54] VITALS: BP 136/64
[2020-05-12] MEDS ORDERED: CEFTRIAXONE SODIUM 1 GM IVP SCH (10:30)
[2020-05-12 11:45] VITALS: BP 131/59
[2020-05-12] MEDS: AZITHROMYCIN 500MG+NS 250ML 250 ML IV SCH (12:58)
--- NOTE | 2020-05-12 13:10 | NUR ---
SPOKE WITH DR. KENNEY, NEW ORDER OBTAIN CONSENT FOR HEMODIALYSIS. CONTINUE PATIENTS SCHEDULED DIALYSIS DAYS OF SUN-SUN-SUN
--- NOTE | 2020-05-12 16:20 | NUR ---
AD NOTE/IA UNABLE TO SPEAK TO PATIENT IN ROOM, NEXT OF KIN CALLED, ATIYA GONZALEZ. PER DAUGHTER, PATIENT LIVES WITH SPOUSE (LORI PERSAUD [phone]), IS INDEPENDENT WITH ADLS, NO DME IN USE, HAS USE OF [facility] ON [address] IN [place] AND FEELS SAFE FOR PATIENT TO RETURN HOME ONCE STABLE. Addendum: 05/12/20 at 1747 by ELIEZER CLINE RN CM Amended: Links added.
[2020-05-12 16:29] VITALS: BP 152/62
[2020-05-12] MEDS ORDERED: ALBUMIN (HUMAN) 25% 100 ML IV ONE (16:38)
[2020-05-12] MEDS ORDERED: 0.9% SODIUM CHLORIDE 1000 ML IV BAG IV PRN (17:00)
[2020-05-12] MEDS ORDERED: LIDOCAINE HCL-MPF 1% 2ML VIAL IJ PRN (17:00)
[2020-05-12] MEDS ORDERED: SODIUM CHLORIDE 0.9% 1000ML 1,000 ML IV PRN (17:00)
[2020-05-12] MEDS ORDERED: NITROGLYCERIN 0.4 MG SL TAB SL PRN (17:00)
[2020-05-12] MEDS ORDERED: HEPARIN SODIUM 5000UNIT/ML 1ML VIAL IJ PRN (17:00)
[2020-05-12] MEDS: DILTIAZEM HCL 120 MG CAP.SR.24H PO SCH (19:51)
[2020-05-12 20:00] VITALS: BP 112/51
[2020-05-12 23:57] VITALS: BP 131/58
[2020-05-13] MEDS: HYDROCODONE/ACETAMINOPHEN 5/325 MG TAB PO PRN ×3 (00:55→19:54)
[2020-05-13] MEDS: CEFTRIAXONE SODIUM 1 GM IV SCH (03:49)
[2020-05-13 03:50] LABS: HEMATOCRIT 23.6 % (36-48); MEAN CORPUSCULAR HEMOGLOBIN 30.6 pg (27.0-33.0); MEAN CORPUSCULAR HGB CONC 33.5 g/dL (32.0-36.0); MEAN CORPUSCULAR VOLUME 91.5 fL (79-99); PLATELET COUNT (AUTO) 85 K/uL (130-400); RED BLOOD CELL COUNT(AUTO) 2.58 MIL/uL (4.00-5.50); WHITE BLOOD COUNT (AUTO) 2.5 K/uL (4.8-10.8)
[2020-05-13 04:00] VITALS: BP 121/58
[2020-05-13 04:07] LABS: CREATININE 4.9 mg/dL (0.5-1.5); PHOSPHORUS 5.3 mg/dL (2.5-4.9); POTASSIUM 5.2 mmol/L (3.5-5.1)
[2020-05-13 04:16] LABS: BAND NEUTROPHILS % (MANUAL) 42 % (0-2); EOSINOPHILS % (MANUAL) 1 % (1-6); LYMPHOCYTES % (MANUAL) 11 % (22-44); MAN.DIFF COMMENT-IMPRESSION MANUAL DIFFERENTIAL; REACTIVE LYMPHOCYTES 2 % (0-0); SEGMENTED NEUTROPHILS % 44 % (40-70)
[2020-05-13] MEDS: INSULIN HUMULIN R 100 UNIT/ML 3ML SQ SCH ×4 (05:50→21:07)
--- NOTE | 2020-05-13 06:42 | NUR ---
assessment pt is alert and oriented times 4. complains of back pain gave lortab at 2100,0100 and 0500. patient is on room air sating 95%. am blood sugar was 207 i gave her insulin coverage. patient took a shower early this morning. vitals are stable will continue to monitor.
[2020-05-13 07:00] VITALS: BP 116/57
[2020-05-13] MEDS: FUROSEMIDE 20 MG TABLET PO SCH ×2 (08:54→17:21)
[2020-05-13] MEDS: FERROUS SULFATE 325 MG TABLET.DR PO SCH (08:54)
[2020-05-13 11:00] VITALS: BP 109/53
[2020-05-13] MEDS: AZITHROMYCIN 500MG+NS 250ML 250 ML IV SCH (12:43)
--- NOTE | 2020-05-13 15:00 | NUR ---
CHART CHECK COMPLETED. Pt IS A 64 Y.O. FEMALE ADMITTED SECONDARY TO B/L FLANK PAIN, UTI, HEMODIALYSIS. Pt HAS A PAST MEDICAL HISTORY SIGNIFICANT FOR DMII, HYPERTENSION, HLD, ESRD, ASTHMA. Pt CURRENTLY ON REGULAR TEXTURE,THIN LIQUID DIET (RENAL). PLEASE REQUEST FORMAL SKILLED SPEECH/SWALLOW EVALUATION IF Pt PRESENTS WITH +S/S OF ASPIRATION SUCH COUGH RESPONSE, THROAT CLEAR, OR WET VOCAL QUALITY DURING P.O. Addendum: 05/13/20 at 1502 by VIVIANA LITTLE, [facility] Amended: Links added.
[2020-05-13 16:00] VITALS: BP 129/57
[2020-05-13] MEDS: DILTIAZEM HCL 120 MG CAP.SR.24H PO SCH (19:53)
[2020-05-13 20:00] VITALS: BP 99/47
[2020-05-14] VITALS: BP 115/36
[2020-05-14 04:00] VITALS: BP 136/70
[2020-05-14 04:35] LABS: HEMATOCRIT 24.4 % (36-48); MEAN CORPUSCULAR HGB CONC 33.2 g/dL (32.0-36.0); MEAN CORPUSCULAR VOLUME 90.4 fL (79-99); RED BLOOD CELL COUNT(AUTO) 2.7 MIL/uL (4.00-5.50); RED CELL DISTRIBUTION WIDTH 14.1 % (11.0-15.5); WHITE BLOOD COUNT (AUTO) 5.1 K/uL (4.8-10.8)
[2020-05-14] MEDS: CEFTRIAXONE SODIUM 1 GM IV SCH (04:50)
[2020-05-14] MEDS: INSULIN HUMULIN R 100 UNIT/ML 3ML SQ SCH ×4 (04:52→20:38)
[2020-05-14 04:54] LABS: ALBUMIN 3.2 g/dL (3.5-5.0); BILIRUBIN,TOTAL 0.5 mg/dL (0.2-1.0); CREATININE 7.2 mg/dL (0.5-1.5); POTASSIUM 5.1 mmol/L (3.5-5.1); TOTAL PROTEIN, SERUM 7.7 g/dL (6.0-8.3)
[2020-05-14 07:02] LABS: THYROID STIMULATING HORMONE 0.81 uIU/mL (0.36-3.74)
[2020-05-14 08:07] VITALS: BP 131/56
[2020-05-14] MEDS: FERROUS SULFATE 325 MG TABLET.DR PO SCH (08:10)
[2020-05-14] MEDS: FUROSEMIDE 20 MG TABLET PO SCH ×2 (08:10→17:03)
[2020-05-14 09:13] LABS: HEPATITIS Bs ANTIGEN SCREEN P Negative (Negative)
[2020-05-14 12:19] VITALS: BP 114/48
[2020-05-14] MEDS ORDERED: EPOETIN ALFA 10,000 UNIT/ML VIAL IV SCH (12:43)
[2020-05-14] MEDS: AMOXICILLIN 500 MG CAPSULE PO SCH (13:37)
[2020-05-14] MEDS: AZITHROMYCIN 500MG+NS 250ML 250 ML IV SCH (13:38)
[2020-05-14 16:37] VITALS: BP 118/50
[2020-05-14] MEDS: DILTIAZEM HCL 120 MG CAP.SR.24H PO SCH (20:02)
[2020-05-14 20:04] VITALS: BP 144/54
[2020-05-14] MEDS ORDERED: EPOETIN ALFA 10,000 UNIT/ML VIAL SQ SCH (21:00)
[2020-05-15 00:04] VITALS: BP 104/49
[2020-05-15 04:04] VITALS: BP 112/49
[2020-05-15] MEDS: INSULIN HUMULIN R 100 UNIT/ML 3ML SQ SCH ×3 (05:39→17:15)
--- NOTE | 2020-05-15 05:40 | NUR ---
ASSESSMENT PT. IS ALERT AND ORIENTED TIMES 4. NO COMPLAINTS OF ANY PAIN. PATIENT IS SATING 96% ON 1 LITER NASAL CANULA. SKIN IS INTACT. AM BLOOD SUGAR IS 99 NO COVERAGE NEEDED. VITALS ARE STABLE WILL CONTINUE TO MONITOR.
[2020-05-15 06:36] LABS: HEMATOCRIT 24.7 % (36-48); MEAN CORPUSCULAR HEMOGLOBIN 30.2 pg (27.0-33.0); MEAN CORPUSCULAR HGB CONC 32.8 g/dL (32.0-36.0); MEAN CORPUSCULAR VOLUME 92.2 fL (79-99); RED BLOOD CELL COUNT(AUTO) 2.68 MIL/uL (4.00-5.50); RED CELL DISTRIBUTION WIDTH 14.6 % (11.0-15.5); WHITE BLOOD COUNT (AUTO) 3.2 K/uL (4.8-10.8)
[2020-05-15 06:59] LABS: CREATININE 5.5 mg/dL (0.5-1.5); POTASSIUM 4.2 mmol/L (3.5-5.1)
[2020-05-15 07:51] VITALS: BP 131/52
[2020-05-15] MEDS: FERROUS SULFATE 325 MG TABLET.DR PO SCH (10:27)
[2020-05-15] MEDS: FUROSEMIDE 20 MG TABLET PO SCH ×2 (10:28→17:17)
[2020-05-15 11:58] VITALS: BP 133/49
[2020-05-15] MEDS ORDERED: AMOX500C2 PO (12:20)
[2020-05-15] MEDS: AZITHROMYCIN 500MG+NS 250ML 250 ML IV SCH (13:22)
[2020-05-15] MEDS: AMOXICILLIN 500 MG CAPSULE PO SCH (13:22)
[2020-05-15 15:28] VITALS: BP 112/49
--- NOTE | 2020-05-15 18:42 | NUR ---
Discharge Discharge summary was explained to the patient, including new medications to start tomorrow. IV removed/cathelon intact, bleeding stopped. VS stable. All questions answered. Yareli was called as well and discussed discharge summary. Pt was discharged home. picked pt up.
== END 2020-05-15 18:30 | disposition home or self-care (01) | DRG 871 ==
LOC: EDH 00:35 → EDHIP 02:56 → OBSVTOIN 02:56 → 4BH 06:06
PROVIDERS: ADMIT Internal Medicine; ATTEND Internal Medicine
PROC: 5A1D70Z Performance of Urinary Filtration, Intermittent, Less than 6 Hours Per Day (ICD-10-PCS; principal; 2020-05-12)
PROC: 5A1D70Z Performance of Urinary Filtration, Intermittent, Less than 6 Hours Per Day (ICD-10-PCS; 2020-05-14)
DX: A41.81 Sepsis due to Enterococcus (principal); J18.9 Pneumonia, unspecified organism; N18.6 End stage renal disease; I12.0 Hypertensive chronic kidney disease with stage 5 chronic kidney disease or end stage renal disease; N39.0 Urinary tract infection, site not specified; D61.818 Other pancytopenia; N12 Tubulo-interstitial nephritis, not specified as acute or chronic; E11.22 Type 2 diabetes mellitus with diabetic chronic kidney disease; E78.5 Hyperlipidemia, unspecified; J45.909 Unspecified asthma, uncomplicated; D63.1 Anemia in chronic kidney disease; D89.9 Disorder involving the immune mechanism, unspecified; R53.81 Other malaise; Z20.828 Contact with and (suspected) exposure to other viral communicable diseases; Z99.2 Dependence on renal dialysis; Z90.710 Acquired absence of both cervix and uterus; Z90.722 Acquired absence of ovaries, bilateral; Z87.440 Personal history of urinary (tract) infections; Z83.3 Family history of diabetes mellitus
CPT/HCPCS: 36415; 71045; 74176; 76770; 80048; 80053; 81001; 82607; 82746; 82948; 83605; 84100; 84145; 84443; 85025; 85027; 86140; 86704; 86706; 87040; 87077; 87088; 87186; 87340; 87426; 87520; 90935; G0378; J0456; J0696; J0885; J2405; P9046; U0003

== ENCOUNTER 2021-12-15 04:14 | Emergency (ER) | payer MEDICARE ==
[~2021-12-15] VITALS: Ht 152.4 cm; Wt 66.7 kg
[~2021-12-15 04:14] MED LIST changes: +ACET-2247 PO; +ADV250 IH; +ALBU90AE2 IH; +ATOR40TA69 PO; -CETI10TA57 PO; +CHOL500051 PO; -Calcium Acetate PO; +DILT-118 PO; -DILT240C35 PO; +DOCU-116 PO; +DOXY100T2 PO; -FERR324T4 PO; +FOLI1TAB85 PO; -FURO20TA4 PO; -Folic Acid/Vitamin B Comp W-C PO; +GABA-529 PO; -GUAI-1211 PO; +PREMC VG; +VIT E PO
[2021-12-15 04:16] VITALS: BP 120/37
== END 2021-12-15 08:00 | disposition left against medical advice (07) ==
LOC: EDH 04:14
DX: R25.3 Fasciculation (principal); Z53.21 Procedure and treatment not carried out due to patient leaving prior to being seen by health care provider

== ENCOUNTER 2022-09-11 01:26 | Observation (INO) | payer MEDICARE ==
[~2022-09-11] VITALS: Ht 154.9 cm; Wt 68.7 kg
[2022-09-11] VITALS (16 sets, daily range): BP systolic 102–187; BP diastolic 39–109
[~2022-09-11 01:26] MED LIST changes: +ALBU6.7H14 IH; -ALBU6.7H9 IH
[2022-09-11 01:53] LABS: BASOPHILS % (AUTO) 0.2 % (0.0-5.0); HEMATOCRIT 29.6 % (36-48); LYMPHOCYTES % (AUTO) 11.1 % (21.0-51.0); MEAN CORPUSCULAR HEMOGLOBIN 28.7 pg (27.0-33.0); MEAN CORPUSCULAR HGB CONC 32.4 g/dL (32.0-36.0); MEAN CORPUSCULAR VOLUME 88.4 fL (79-99); MONOCYTES % (AUTO) 7.1 % (3.0-13.0); NEUTROPHILS % (AUTO) 79.4 % (40.0-77.0); PLATELET COUNT (AUTO) 122 K/uL (130-400); RED BLOOD CELL COUNT(AUTO) 3.35 MIL/uL (4.00-5.50); RED CELL DISTRIBUTION WIDTH 16.3 % (11.0-15.5); WHITE BLOOD COUNT (AUTO) 5.5 K/uL (4.8-10.8)
[2022-09-11 01:59] LABS: CREATININE 7.3 mg/dL (0.5-1.5); POTASSIUM 4.8 mmol/L (3.5-5.1)
[2022-09-11 02:04] LABS: ALBUMIN 3.8 g/dL (3.5-5.0); TOTAL PROTEIN, SERUM 7.4 g/dL (6.0-8.3)
[2022-09-11] MEDS ORDERED: ACETAMINOPHEN 325 MG TAB ONE (03:18)
[2022-09-11] MEDS ORDERED: ACETAMINOPHEN 325 MG TAB PO PRN (03:30)
[2022-09-11] MEDS ORDERED: ONDANSETRON 4MG INJ IV PRN (03:30)
[2022-09-11] MEDS ORDERED: ACETAMINOPHEN 325 MG TAB PO ONE (03:30)
[2022-09-11] MEDS: IPRATROPIUM/ALBUTEROL SULFATE 3 ML SOLUTION IH SCH ×4 (06:35→23:18)
[2022-09-11] MEDS: INSULIN HUMULIN R 100 UNIT/ML 3ML SQ SCH ×4 (07:30→20:58)
[2022-09-11] MEDS: PANTOPRAZOLE 40 MG TAB DR PO SCH (10:42)
[2022-09-11] MEDS ORDERED: CARV25TA PO (11:16)
[2022-09-11] MEDS ORDERED: AURYXIA PO (11:16)
[2022-09-11] MEDS ORDERED: FOLI1TAB85 PO (11:16)
[2022-09-11] MEDS ORDERED: INSU100V12 SQ (11:16)
[2022-09-11] MEDS ORDERED: LOSA100T58 PO (11:16)
[2022-09-11] MEDS ORDERED: GUAIFENESIN-CODEINE 5 ML SYRUP PO PRN (12:30)
[2022-09-11] MEDS ORDERED: BENZONATATE 100 MG CAPSULE PO PRN (12:30)
[2022-09-11] MEDS ORDERED: CEFTRIAXONE 1G VIAL IVP SCH (15:00)
[2022-09-11] MEDS ORDERED: AZITHROMYCIN 500MG+NS 250ML IVPB SCH (15:30)
[2022-09-12] VITALS: BP 134/77
[2022-09-12 04:00] VITALS: BP 176/76
[2022-09-12 04:29] LABS: HEPATITIS B SURFACE ANTIGEN Non-Reactive (Nonreactive)
[2022-09-12 04:30] LABS: BASOPHILS % (AUTO) 0.2 % (0.0-5.0); HEMATOCRIT 28.1 % (36-48); LYMPHOCYTES % (AUTO) 12.1 % (21.0-51.0); MEAN CORPUSCULAR HEMOGLOBIN 28.3 pg (27.0-33.0); MEAN CORPUSCULAR HGB CONC 32.7 g/dL (32.0-36.0); MEAN CORPUSCULAR VOLUME 86.5 fL (79-99); MONOCYTES % (AUTO) 7.1 % (3.0-13.0); NEUTROPHILS % (AUTO) 79.2 % (40.0-77.0); PLATELET COUNT (AUTO) 116 K/uL (130-400); RED BLOOD CELL COUNT(AUTO) 3.25 MIL/uL (4.00-5.50); RED CELL DISTRIBUTION WIDTH 16.2 % (11.0-15.5); WHITE BLOOD COUNT (AUTO) 4.8 K/uL (4.8-10.8)
[2022-09-12 04:50] LABS: CREATININE 5.2 mg/dL (0.5-1.5); MAGNESIUM 2.3 mg/dL (1.80-2.40); PHOSPHORUS 4.1 mg/dL (2.5-4.9); POTASSIUM 4.5 mmol/L (3.5-5.1)
[2022-09-12 05:02] LABS: HEMOGLOBIN A1C 7.5 % (4.0-6.0)
[2022-09-12] MEDS: INSULIN HUMULIN R 100 UNIT/ML 3ML SQ SCH (05:26)
[2022-09-12] MEDS ORDERED: LABETALOL 20MG SYG IV ONE (05:30)
[2022-09-12] MEDS ORDERED: LABETALOL 20MG VIAL IV ONE (05:53)
[2022-09-12 06:30] VITALS: BP 163/68
[2022-09-12] MEDS: IPRATROPIUM/ALBUTEROL SULFATE 3 ML SOLUTION IH SCH (06:44)
[2022-09-12 08:00] VITALS: BP 163/76
[2022-09-12] MEDS ORDERED: Vitamin B Complex/Vit C/Folic Acid PO SCH (09:00)
[2022-09-12] MEDS ORDERED: CARVEDILOL 25 MG TABLET PO SCH (09:00)
[2022-09-12] MEDS ORDERED: LOSARTAN 100 MG TABLET PO SCH (09:00)
[2022-09-12] MEDS ORDERED: ATORVASTATIN 40 MG TABLET PO SCH (09:00)
[2022-09-12 09:24] VITALS: BP 163/76
[2022-09-12] MEDS: PANTOPRAZOLE 40 MG TAB DR PO SCH (09:24)
== END 2022-09-12 10:15 | disposition home or self-care (01) ==
LOC: EDH 01:26 → INTOOBSV 03:29 → EDHIP 03:29 → 3BH 21:32
PROVIDERS: ADMIT Hospitalist; ATTEND Hospitalist
DX: J81.1 Chronic pulmonary edema (principal); Z20.822 Contact with and (suspected) exposure to COVID-19; E11.65 Type 2 diabetes mellitus with hyperglycemia; I13.2 Hypertensive heart and chronic kidney disease with heart failure and with stage 5 chronic kidney disease, or end stage renal disease; I50.9 Heart failure, unspecified; N18.6 End stage renal disease; E11.22 Type 2 diabetes mellitus with diabetic chronic kidney disease; D64.9 Anemia, unspecified; E66.9 Obesity, unspecified; J45.909 Unspecified asthma, uncomplicated; E78.5 Hyperlipidemia, unspecified; Z79.4 Long term (current) use of insulin; Z79.899 Other long term (current) drug therapy; Z51.5 Encounter for palliative care; Z90.710 Acquired absence of both cervix and uterus; Z99.2 Dependence on renal dialysis; Z98.890 Other specified postprocedural states; Z68.28 Body mass index [BMI] 28.0-28.9, adult
CPT/HCPCS: 94640 ×5; 96365; 96366; 96375 ×2; 99285; 84484; 80053; 83880; 85025 ×2; 87040 ×2; 87071; 87077; 87186; 87205; 87804 ×2; 82948 ×5; 86706; 87340; 86704; 36415 ×2; 87635; 71045; 93005; 94664; 83036; 83735; 84100; 80048; J1815; G0378 ×27; C9803; J0696; J0456; J3490; 90935

== ENCOUNTER 2022-10-14 15:11 | Observation (INO) | payer MEDICARE ==
[~2022-10-14] VITALS: Ht 162.6 cm; Wt 68.6 kg
[~2022-10-14 15:11] MED LIST changes: -ACET-2247 PO; -ADV250 IH; -ALBU90AE2 IH; +AURYXIA PO; +CARV25TA PO; -DOCU-116 PO; -DOXY100T2 PO; -GABA-529 PO; +LOSA100T58 PO; -PREMC VG
[2022-10-14 16:08] LABS: BASOPHILS % (AUTO) 0.5 % (0.0-5.0); EOSINOPHILS % (AUTO) 3.1 % (0.0-8.0); LYMPHOCYTES % (AUTO) 22.7 % (21.0-51.0); MEAN CORPUSCULAR HEMOGLOBIN 29.8 pg (27.0-33.0); MEAN CORPUSCULAR HGB CONC 31.8 g/dL (32.0-36.0); MEAN CORPUSCULAR VOLUME 93.5 fL (79-99); MONOCYTES % (AUTO) 7.3 % (3.0-13.0); NEUTROPHILS % (AUTO) 66.1 % (40.0-77.0); PLATELET COUNT (AUTO) 148 K/uL (130-400); RED BLOOD CELL COUNT(AUTO) 2.15 MIL/uL (4.00-5.50); RED CELL DISTRIBUTION WIDTH 18.2 % (11.0-15.5); WHITE BLOOD COUNT (AUTO) 3.8 K/uL (4.8-10.8)
[2022-10-14 16:20] LABS: HEMATOCRIT 20.1 % (36-48)
[2022-10-14 16:32] LABS: ALBUMIN 3.7 g/dL (3.5-5.0); CREATININE 4.6 mg/dL (0.5-1.5); TOTAL PROTEIN, SERUM 7.3 g/dL (6.0-8.3)
[2022-10-14] MEDS ORDERED: NITROGLYCERIN 0.4 MG SL TAB SL PRN (18:30)
[2022-10-14] MEDS ORDERED: ONDANSETRON 4MG INJ IV PRN (18:30)
[2022-10-14] MEDS ORDERED: HYDRALAZINE 20MG/ML VIAL IV PRN (18:30)
[2022-10-14] MEDS ORDERED: DIPHENHYDRAMINE HCL 25 MG CAPSULE PO PRN (18:30)
[2022-10-14] MEDS ORDERED: MAG/ALUM/SIMETH 30 ML UDCUP PO PRN (18:30)
[2022-10-14] MEDS ORDERED: GUAIFENESIN-DM 200/20 MG 10 ML PO PRN (18:30)
[2022-10-14] MEDS ORDERED: LACTULOSE 20 GM/30 ML UDCUP PO PRN (18:30)
[2022-10-14] MEDS ORDERED: ACETAMINOPHEN 325 MG TAB PO PRN (18:30)
[2022-10-14] MEDS: FAMOTIDINE 20MG VIAL IV SCH (21:00)
[2022-10-14 22:02] VITALS: BP 135/65
[2022-10-15] MEDS ORDERED: IPRATROPIUM 0.5 MG/2.5 ML INH IH ONE (01:59)
[2022-10-15] MEDS ORDERED: ALBUTEROL 0.083% 2.5 MG/3 ML INH IH ONE (01:59)
[2022-10-15 04:00] VITALS: BP 130/56
[2022-10-15] MEDS ORDERED: DEXTROSE 50%-WATER 50 ML DISP.SYRIN IV PRN (04:30)
[2022-10-15] MEDS ORDERED: GLUCAGON 1MG KIT 1 MG ML IM PRN (04:30)
[2022-10-15] MEDS ORDERED: IPRATROPIUM/ALBUTEROL SULFATE 3 ML SOLUTION IH SCH (06:00)
[2022-10-15] MEDS ORDERED: ALBUTEROL 0.042% 1.25MG/3ML IH SCH (06:00)
[2022-10-15] MEDS: IPRATROPIUM 0.5 MG/2.5 ML INH IH SCH ×4 (06:48→23:45)
[2022-10-15] MEDS: ALBUTEROL 0.083% 2.5 MG/3 ML INH IH SCH ×4 (06:48→23:45)
[2022-10-15 07:30] VITALS: BP 148/51
[2022-10-15] MEDS: INSULIN HUMULIN R 100 UNIT/ML 3ML SQ SCH ×4 (07:30→20:51)
[2022-10-15 07:31] LABS: HEMATOCRIT 22.9 % (36-48); MEAN CORPUSCULAR HEMOGLOBIN 29.3 pg (27.0-33.0); MEAN CORPUSCULAR HGB CONC 32.8 g/dL (32.0-36.0); MEAN CORPUSCULAR VOLUME 89.5 fL (79-99); RED BLOOD CELL COUNT(AUTO) 2.56 MIL/uL (4.00-5.50); RED CELL DISTRIBUTION WIDTH 17.6 % (11.0-15.5); WHITE BLOOD COUNT (AUTO) 3.8 K/uL (4.8-10.8)
[2022-10-15 07:41] LABS: CREATININE 5.6 mg/dL (0.5-1.5); POTASSIUM 5.1 mmol/L (3.5-5.1)
[2022-10-15] MEDS: Vitamin B Complex/Vit C/Folic Acid PO SCH (09:00)
[2022-10-15] MEDS: ***HM***(Cholecalciferol (Vitamin D3) (Vitamin D3) 125 MCG) PO SCH (09:00)
[2022-10-15] MEDS: CARVEDILOL 25 MG TABLET PO SCH ×2 (09:00→20:43)
[2022-10-15] MEDS: AURYXIA 210 MG PO SCH ×3 (09:00→20:51)
[2022-10-15 09:19] LABS: % IRON SATURATION 100.5 % (22-44)
[2022-10-15 11:30] VITALS: BP 154/59
[2022-10-15] MEDS: LOSARTAN 50 MG TABLET PO SCH ×2 (12:02→20:43)
[2022-10-15] MEDS: LEVOFLOXACIN 500 MG TABLET PO SCH (14:33)
[2022-10-15 15:30] VITALS: BP 153/64
[2022-10-15 20:00] VITALS: BP 164/66
[2022-10-15] MEDS: FAMOTIDINE 20MG VIAL IV SCH (20:42)
[2022-10-15] MEDS ORDERED: DILTIAZEM 120MG SR CAP PO SCH (21:00)
[2022-10-15] MEDS ORDERED: ATORVASTATIN 40 MG TABLET PO SCH (21:00)
[2022-10-15 23:30] VITALS: BP 154/54
[2022-10-16] VITALS (19 sets, daily range): BP systolic 103–165; BP diastolic 48–70
[2022-10-16 04:05] LABS: BASOPHILS % (AUTO) 0.2 % (0.0-5.0); EOSINOPHILS % (AUTO) 1.5 % (0.0-8.0); HEMATOCRIT 22.2 % (36-48); LYMPHOCYTES % (AUTO) 14.3 % (21.0-51.0); MEAN CORPUSCULAR HEMOGLOBIN 29.3 pg (27.0-33.0); MEAN CORPUSCULAR HGB CONC 32.4 g/dL (32.0-36.0); MEAN CORPUSCULAR VOLUME 90.2 fL (79-99); MONOCYTES % (AUTO) 7.5 % (3.0-13.0); NEUTROPHILS % (AUTO) 76.3 % (40.0-77.0); PLATELET COUNT (AUTO) 112 K/uL (130-400); RED BLOOD CELL COUNT(AUTO) 2.46 MIL/uL (4.00-5.50); RED CELL DISTRIBUTION WIDTH 17.3 % (11.0-15.5); WHITE BLOOD COUNT (AUTO) 4.8 K/uL (4.8-10.8)
[2022-10-16 04:19] LABS: CREATININE 7.2 mg/dL (0.5-1.5); PHOSPHORUS 4.4 mg/dL (2.5-4.9); POTASSIUM 5.7 mmol/L (3.5-5.1)
[2022-10-16] MEDS: IPRATROPIUM 0.5 MG/2.5 ML INH IH SCH ×2 (06:50→11:29)
[2022-10-16] MEDS: ALBUTEROL 0.083% 2.5 MG/3 ML INH IH SCH ×2 (06:50→11:29)
[2022-10-16] MEDS: INSULIN HUMULIN R 100 UNIT/ML 3ML SQ SCH ×3 (07:30→16:51)
[2022-10-16] MEDS: AURYXIA 210 MG PO SCH ×2 (09:00→14:00)
[2022-10-16] MEDS: LOSARTAN 50 MG TABLET PO SCH (09:00)
[2022-10-16] MEDS: ***HM***(Cholecalciferol (Vitamin D3) (Vitamin D3) 125 MCG) PO SCH (09:00)
[2022-10-16] MEDS: CARVEDILOL 25 MG TABLET PO SCH (09:00)
[2022-10-16] MEDS ORDERED: EPOETIN ALFA-EPBX (NON-ESRD) 10,000 UNIT/ML VIAL SQ SCH (09:00)
[2022-10-16] MEDS: LEVOFLOXACIN 500 MG TABLET PO SCH (15:00)
[2022-10-16] MEDS: Vitamin B Complex/Vit C/Folic Acid PO SCH (15:00)
== END 2022-10-16 17:30 | disposition home or self-care (01) ==
LOC: EDH 15:11 → EDHIP 18:15 → 3CH 21:37
PROVIDERS: ADMIT Hospitalist; ATTEND Hospitalist
DX: D64.9 Anemia, unspecified (principal); Z20.822 Contact with and (suspected) exposure to COVID-19; I12.0 Hypertensive chronic kidney disease with stage 5 chronic kidney disease or end stage renal disease; N18.6 End stage renal disease; E11.22 Type 2 diabetes mellitus with diabetic chronic kidney disease; D63.1 Anemia in chronic kidney disease; D61.818 Other pancytopenia; E87.5 Hyperkalemia; J45.909 Unspecified asthma, uncomplicated; R62.7 Adult failure to thrive; Z79.4 Long term (current) use of insulin; Z99.2 Dependence on renal dialysis; Z79.899 Other long term (current) drug therapy; Z98.890 Other specified postprocedural states
CPT/HCPCS: 36430; 99285; 82550; 83874; 84484; 80053; 85025 ×2; 86850; 86900; 86901; 86923; 82948 ×8; 82270; 36415 ×3; 71045 ×2; 93005; 94640 ×7; 96374; 83540; 83550; 80048 ×2; 82728; 85027; 85045; 87804 ×2; 82607; 82746; 87635; 94664; 96372; 84100; G0378 ×37; P9016; J3490; Q5106; 90935

== ENCOUNTER 2023-05-11 18:21 | Emergency (ER) | payer MEDICARE ==
[~2023-05-11] VITALS: Ht 144.8 cm; Wt 52.2 kg
[~2023-05-11 18:21] MED LIST changes: -LOSA100T58 PO; +LOSA100T59 PO
[2023-05-11 18:23] VITALS: BP 166/78; PULSE 80; RESP 20
== END 2023-05-11 21:30 | disposition left against medical advice (07) ==
LOC: EDH 18:21
DX: T16.1XXA Foreign body in right ear, initial encounter (principal); Z53.21 Procedure and treatment not carried out due to patient leaving prior to being seen by health care provider
CPT/HCPCS: 99281

== ENCOUNTER 2024-01-07 20:39 | Emergency (ER) | payer MEDICARE ==
[~2024-01-07 20:39] MED LIST changes: +DOCU100C33 PO; -INSU100V12 SQ; +IRON150C5 PO; +LEG CRAMPS PO
[2024-01-07 21:13] VITALS: BP 142/68; PULSE 60; RESP 16; O2SAT 100
[2024-01-07 21:50] LABS: BASOPHILS # (AUTO) 0.02 K/uL (0.00-0.20); BASOPHILS % (AUTO) 0.3 % (0.0-5.0); EOSINOPHILS # (AUTO) 0.04 K/uL (0.00-0.70); EOSINOPHILS % (AUTO) 0.7 % (0.0-8.0); HEMATOCRIT 33.9 % (36-48); IMMATURE GRANULOCYTE ABSOLUTE 0.03 K/uL (0-1); LYMPHOCYTES # (AUTO) 0.6 K/uL (1.0-4.8); LYMPHOCYTES % (AUTO) 9.8 % (21.0-51.0); MEAN CORPUSCULAR HEMOGLOBIN 32.8 pg (27.0-33.0); MEAN CORPUSCULAR HGB CONC 32.7 g/dL (32.0-36.0); MEAN CORPUSCULAR VOLUME 100.3 fL (79-99); MONOCYTES # (AUTO) 0.5 K/uL (0.1-1.0); MONOCYTES % (AUTO) 8.9 % (3.0-13.0); NEUTROPHILS # (AUTO) 4.6 K/uL (1.8-7.7); NEUTROPHILS % (AUTO) 79.8 % (40.0-77.0); PLATELET COUNT (AUTO) 145 K/uL (130-400); RED BLOOD CELL COUNT(AUTO) 3.38 MIL/uL (4.00-5.50); WHITE BLOOD COUNT (AUTO) 5.7 K/uL (4.8-10.8)
[2024-01-07 21:58] LABS: CREATININE 4.4 mg/dL (0.5-1.0)
[2024-01-07 22:06] LABS: WBC MORPHOLOGY CONSISTENT W/DIFF
[2024-01-07] MEDS: INSULIN HUMULIN R 100 UNIT/ML 3ML IV ONE (23:43)
== END 2024-01-08 00:07 | disposition home or self-care (01) ==
LOC: EDH 20:39
DX: I12.0 Hypertensive chronic kidney disease with stage 5 chronic kidney disease or end stage renal disease (principal); E11.22 Type 2 diabetes mellitus with diabetic chronic kidney disease; N18.6 End stage renal disease; Z99.2 Dependence on renal dialysis; E11.65 Type 2 diabetes mellitus with hyperglycemia; E66.9 Obesity, unspecified; Z79.4 Long term (current) use of insulin; Z79.899 Other long term (current) drug therapy; Z91.148 Patient's other noncompliance with medication regimen for other reason
CPT/HCPCS: 99283; 96374; 80048; 85025; 82948; 82010; 36415; J1815

== ENCOUNTER 2024-05-30 20:52 | Emergency (ER) | payer MEDICARE ==
[~2024-05-30] VITALS: Ht 152.4 cm; Wt 71.2 kg
[2024-05-30 21:22] LABS: BASOPHILS # (AUTO) 0.03 K/uL (0.00-0.20); BASOPHILS % (AUTO) 0.5 % (0.0-5.0); EOSINOPHILS # (AUTO) 0.55 K/uL (0.00-0.70); EOSINOPHILS % (AUTO) 8.5 % (0.0-8.0); HEMATOCRIT 34.3 % (36-48); IMMATURE GRANULOCYTE ABSOLUTE 0.02 K/uL (0-1); LYMPHOCYTES # (AUTO) 0.9 K/uL (1.0-4.8); LYMPHOCYTES % (AUTO) 14.6 % (21.0-51.0); MEAN CORPUSCULAR HEMOGLOBIN 34.8 pg (27.0-33.0); MEAN CORPUSCULAR HGB CONC 32.9 g/dL (32.0-36.0); MEAN CORPUSCULAR VOLUME 105.5 fL (79-99); MONOCYTES # (AUTO) 0.4 K/uL (0.1-1.0); NEUTROPHILS # (AUTO) 4.5 K/uL (1.8-7.7); NEUTROPHILS % (AUTO) 70.1 % (40.0-77.0); PLATELET COUNT (AUTO) 187 K/uL (130-400); RED BLOOD CELL COUNT(AUTO) 3.25 MIL/uL (4.00-5.50); WHITE BLOOD COUNT (AUTO) 6.5 K/uL (4.8-10.8)
[2024-05-30 21:32] LABS: CREATININE 3.7 mg/dL (0.5-1.0); POTASSIUM 4.1 mmol/L (3.5-5.1)
[2024-05-30 22:39] LABS: APPEARANCE,URINE CLOUDY (CLEAR); COLOR,URINE STRAW (YELLOW)
[2024-05-30 22:40] LABS: GLUCOSE, URINE (UA) NEGATIVE (NEGATIVE); PROTEIN,URINE 300 (3+) mg/dL (NEGATIVE)
[2024-05-30 22:41] LABS: BILIRUBIN,URINE Large mg/dL (NEGATIVE); OCCULT BLOOD,URINE LARGE (NEGATIVE)
[2024-05-30 22:43] LABS: KETONES,URINE NEGATIVE (NEGATIVE); LEUKOCYTE ESTERASE ,URINE LARGE Leu/uL (NEGATIVE); NITRATE,URINE NEGATIVE (NEGATIVE); UROBILINOGEN,URINE 0.2 mg/dL (0.2-1.0)
[2024-05-30 22:46] LABS: RBC,URINE 26-50 /HPF (0-1); SQUAMOUS EPITHELIAL CELL,UR FEW /HPF (0-2); WBC CLUMP MANY /HPF (0-1); WBC,URINE TNTC /HPF (0-1)
[2024-05-30] MEDS: ORPHENADRINE 60MG/2ML IM STA (23:37)
[2024-05-30] MEDS: cefTRIAXone 1G VIAL IVPB ONE (23:37)
[2024-05-30] MEDS: TRIAMCINOLONE ACETONIDE 40 MG/ML 1ML VIAL IM ONE (23:37)
[2024-05-31 00:08] LABS: ALBUMIN 3.4 g/dL (3.5-5.0); BILIRUBIN,DIRECT 0.1 mg/dL (0.0-0.3); BILIRUBIN,TOTAL 1.4 mg/dL (0.2-1.0); TOTAL PROTEIN, SERUM 7.3 g/dL (6.0-8.3)
[2024-05-31] MEDS ORDERED: CEPH500B PO (00:20)
[2024-05-31 00:47] VITALS: BP 160/62; PULSE 57; RESP 18; TEMP 98.4; O2SAT 100
== END 2024-05-31 01:01 | disposition home or self-care (01) ==
LOC: EDH 20:52
DX: N39.0 Urinary tract infection, site not specified (principal); I12.0 Hypertensive chronic kidney disease with stage 5 chronic kidney disease or end stage renal disease; E11.22 Type 2 diabetes mellitus with diabetic chronic kidney disease; N18.6 End stage renal disease; E66.9 Obesity, unspecified; Z79.899 Other long term (current) drug therapy; Z90.710 Acquired absence of both cervix and uterus; Z99.2 Dependence on renal dialysis
CPT/HCPCS: 99285; 74176; 96374; 80076; 84484; 80048; 83690; 85025; 87086 ×2; 87186; 81001; 36415; 93005; 96372 ×2; J0696; J3301; J2360